=== PATIENT | male | born 1960 | race Caucasian/White ===

== ENCOUNTER 2016-06-20 09:40 | Inpatient (IN) | payer OTHER ==
[2016-06-20] MEDS ORDERED: THIAMINE HCL 100 MG in NORMAL SALINE 50 ML IV ONE (09:49)
--- OUTSIDE RECORDS SUMMARY | 2016-06-20 09:56 | XMS REPORT | Continuity of Care Document ---
:1960 Author Organization [facility] ([facility]) Address [address] [place] [address] Phone [phone] Care Team Providers Name Role Phone [facility] Primary Care Provider [phone] Source Comments This disclosure is being made pursuant to the Care Everywhere program, applicable federal and state laws, and may not contain all informaitonavailable regarding this patient.[facility] ([facility]) Active Allergies and Adverse Reactions Allergen Noted Date Severity Reactions Comments Gabapentin (Bulk) 06/25/2014 Medium OTHER Sulfadoxine Pruritus Current Medications Prescription Sig. Disp. Refills Start Date End Date Status aspirin 81 mg EC tablet Take 81 mg by mouth Active daily. pregabalin (LYRICA) 200 Take 200 mg by mouth Active mg capsule 2 times daily topiramate 100 mg Take 100 mg by mouth Active tablet 2 times daily PARoxetine 30 mg tablet Take 30 mg by mouth Active daily albuterol-ipratropium Use 2 Puffs by Active (COMBIVENT) 18-103 inhalation every 6 mcg/Actuation inhaler hours loteprednol (ALREX) 0.2 Instill 1 Drop onto Active % ophthalmic suspension both eyes daily atorvastatin 40 mg Take 1 Tab (40 mg 30 Tab 3 11/29/2014 Active tablet total) by mouth daily clopidogrel 75 mg Take 1 Tab (75 mg 30 Tab 3 11/29/2014 Active tablet total) by mouth daily famotidine 20 mg tablet Take 1 Tab (20 mg 60 Tab 3 11/29/2014 Active total) by mouth 2 times daily metoPROLol tartrate 25 Take 1/2 Tabs (12.5 30 Tab 3 11/29/2014 Active mg tablet mg total) by mouth every 12 hours Active Problems Problem Noted Date Peripheral neuropathy 06/25/2014 Claudication of calf muscles 06/25/2014 PPD positive 01/05/2013 Overview: Completed 8 months of INH and vitamin B6 and stopped due to peripheral neuropathy. Colon cancer screening 08/18/2012 Onychomycosis 08/18/2012 Carotid stenosis, bilateral 07/25/2012 Nicotine addiction 03/01/2012 Myofascial pain 03/01/2012 PAD (peripheral artery disease) 05/13/2009 Chronic airway obstruction, not elsewhere classified 05/27/2008 Chronic hepatitis C without mention of hepatic coma 01/24/2008 Overview: Genotype 1. Liver biopsy 05/15/09 DIAGNOSIS: Liver, needle biopsy: No significant inflammation or fibrosis. See comment. Comment: Jesus Ward M.D. Date reported: 05/19/09 Pathologist (Electronic Signature) COMMENT: Only a single portal triad is present on step sections through the needle biopsy. Other psoriasis 01/24/2008 Unspecified essential hypertension 01/02/2008 Unspecified viral hepatitis without mention of hepatic coma 01/02/2008 Resolved Problems Problem Noted Date Resolved Date Chest pain, unspecified 11/26/2014 11/29/2014 Leg pain, bilateral 07/25/2012 08/18/2012 Diabetes mellitus screening 03/01/2012 08/18/2012 Other physical therapy 12/05/2008 12/05/2008 Immunizations Name Dates Previously Given Next Due Influenza 01/22/2009 Influenza, PF 03/01/2012 Influenza, unspecified 01/24/2008 Novel Influenza H1N1 04/15/2009 Pneumococcal Polysaccharide, PPSV23 (Pneumovax 23) 08/18/2012 Social History Tobacco Use Types Packs/Day Years Used Date Current Every Day Smoker Cigarettes 0.5 30 Smokeless Tobacco: Never Used Tobacco Cessation:Ready to Quit: No Comments: Alcohol Use Drinks/Week oz/Week Comments No daily, 5-6 beers, last 04/19/12 Last Filed Vital Signs Vital Sign Reading Time Taken Blood Pressure 94/57 11/29/2014 7:46 AM CDT Pulse 57 11/29/2014 7:46 AM CDT Temperature 35.5 C (95.9 F) 11/29/2014 7:46 AM CDT Respiratory Rate 14 11/29/2014 11:21 AM CDT Height 1.753 m (5' 9") 11/26/2014 1:00 PM CDT Weight 98.1 kg (216 lb 4.3 oz) 11/29/2014 6:00 AM CDT Body Mass Index 31.92 11/29/2014 6:00 AM CDT Oxygen Saturation 94% 11/29/2014 7:46 AM CDT Plan of Care Health Maintenance Due Date Last Done Comments Hepatitis B Vaccine (1 of 3 - 1960 Primary Series) Tdap Vaccine 1973 MMR Vaccine 1980 Td Vaccine 1980 Colonoscopy 03/09/2012 FOBT Colon Cancer Screening 2012 Prostate Cancer Screening 2012 Sigmoidoscopy Colon Cancer 2012 Screening Influenza Vaccine: Seasonal 11/10/2015 03/01/2012, (#1) 01/22/2009, 01/24/2008 Lipid Disorder Screening 03/01/2017 03/01/2012, Additional history exists 08/12/2010, 04/15/2009 HCV Screening Completed 01/02/2008 Pneumococcal Vaccine Completed 08/18/2012 Results from Last 3 Months Not on file
--- NOTE | 2016-06-20 10:12 | ERNOTE ---
Neuro HPI ER Record Date of Service: 06/20/16 Presenting Symptoms: other - seizure Time Seen by Provider: 06/20/16 09:46 Source: EMS Exam Limitations: clinical condition Immunizations: IMMUNIZATION HX Immunizations Up to Date No History of Influenza Vaccine No Hx Pneumococcal Vaccination No Allergies/Adverse Reactions: Allergies Allergy/AdvReac Type Severity Reaction Status Date / Time Sulfa (Sulfonamide Allergy Mild Itching Verified 06/20/16 09:55 Antibiotics) [Sulfa(Sulfonamide Antibiotics)] gabapentin Allergy Verified 06/20/16 09:55 Home Medications: HOME MEDICATIONS Atenolol [Tenormin] 25 mg PO DAILY 11/26/14 [Last Taken Unknown] Diclofenac Sodium 75 mg PO DAILY 11/26/14 [Last Taken Unknown] Hydrocodone/Acetaminophen [Hydrocodon-Acetaminoph 7.5-325] 1 each PO Q8H PRN [Last Taken Unknown] Ipratropium/Albuterol Sulfate [Combivent Respimat Inhal Falcon] 1 puff IH QID [Last Taken Unknown] Mirtazapine [Mirtazapine (Remeron)] 15 mg PO HS 11/26/14 [Last Taken Unknown] Paroxetine HCl [Paxil] 30 mg PO DAILY 11/26/14 [Last Taken Unknown] Pregabalin [Lyrica] 200 mg PO DAILY 11/26/14 [Last Taken Unknown] Topiramate [Topamax] 100 mg PO DAILY 11/26/14 [Last Taken Unknown] Albuterol Sulfate [Proventil Hfa] 6.7 gm IH QID #1 inhaler 01/23/16 [Last Taken Unknown] Cephalexin [Keflex] 500 mg PO QID #40 capsule 01/23/16 [Last Taken Unknown] - History of Present Illness Narrative: EMS said bystanders thought he had a seizure. When EMS arrived, was supine, head on a pillow, disoriented. He remains disoriented in the emergency room. Actual description of seizure not available. Patient mumbling, and a useless historian at present. Does admit to drinking an unknown quantity of beer last night. Has a walking cane. Onset: cannot confirm onset Severity: moderate Context: other - unknown - Character of Deficits New weakness: Present: general (diffuse) Additional Deficits: Present: impaired speech, decrease ability to stand Baseline Cognition: Present: poor alertness Baseline Gait: Present: uses a cane/walker Associated Symptoms: Reports: altered mental status, disoriented, confused, decreased responsiveness Review of Systems - Review of Systems Constitutional: Present: no symptoms reported - unable to provide due to confusion - Patient's Past Medical History Patient History - Medical: Alcohol Abuse, Obesity Patient History - Cardiac/Respiratory: Hypertension Patient History - Cancer: No Hx of Cancer, Other Patient History - Surgical Procedures: Other Patient History - Other: None - Social History Living Situations: alone Psych History: No pertinent hx Smoking Status: Current every day smoker Have you smoked in the past 12 months: Yes Do you dip or chew tobacco: No Patient requests Smoking Cessation Consult: No Initiate information on Smoking Cessation: No Alcohol Use: heavy Drug Use: none - Immunizations Immunizations Up to Date: No Hx Pneumococcal Vaccination: No History of Influenza Vaccine: No Physical Exam - Physical Exam General Appearance: Present: wd/wn, lethargic, other - smells of alcoholic beverage Eye Exam: Normal inspection: bilateral, PERRL: bilateral, EOMI: bilateral Ears, Nose, Throat: Present: normal ENT inspection Neck: Present: normal inspection, nontender. Absent: lymphadenopathy (R), lymphadenopathy (L) Respiratory: Present: no respiratory distress, decreased breath sounds Cardiovascular/Chest: Present: regular rate, rhythm, no murmur Gastrointestinal/Abdominal: Present: normal bowel sounds, nontender, nondistended, soft, no organomegaly Back Exam: Present: normal inspection, no CVA tenderness, no vertebral tenderness Extremity Exam: Present: extremity edema Neurological Exam: Present: motor weakness, disoriented to person, disoriented to time, disoriented to place, disoriented to situation Skin Exam: Present: normal color, warm/dry, other - unkempt Y[place]enia Coma Scale - Assess Eye Opening: Spontaneous Motor: Obeys Commands Verbal: Confused - Total Coma Scale Total: 14 ED Progress - Results and Orders Patient's Lab Results:: I have reviewed the patient's lab results. - Vital Signs Patient's Vital Signs:: I have reviewed the patient's vital signs. Vital Signs: Vital Signs 06/20/16 06/20/16 06/20/16 09:40 09:41 10:02 Temperature 36.3 C L 36.3 C L Pulse Rate 131 H 135 H Respiratory 23 H 18 Rate Blood Pressure 136/92 214/125 185/154 O2 Sat by Pulse 96 96 Oximetry - EKG EKG: nonspecific ST T wave changes - sinus tach EKG read: Interp. by me - X-Ray X-Ray #1 X-Ray: chest Interpretation: Reviewed by me - non acute - CT/Ultrasound CT/Ultrasound Narrative: I reviewed the head CT report, it is non acute. - Progress/Reassessment Chief Complaint: Altered Mental Status Progress Note-Subjective: 06/20/16 11:22 Just had a generalized tonic clonic convulsion. Will give Ativan and Keppra. 06/20/16 13:02 I spoke with Hanna Hidalgo, who agreed to accept this patient as an acute med surg floor admission. Departure Clinical Impression: Stupor, Serum ammonia increased, Hyperglycemia, Seizures, Thrombocytopenia Alcohol withdrawal Qualifiers: Complication of substance-induced condition: with delirium Qualified Code(s): F10.231 - Alcohol dependence with withdrawal delirium Hypertension Qualifiers: Hypertension type: unspecified secondary hypertension Qualified Code(s): I15.9 - Secondary hypertension, unspecified; I15 - Secondary hypertension - Departure Disposition: [facility] Condition: Poor
[2016-06-20] MEDS ORDERED: LABETALOL HCL 5 MG/ML VIAL IV ONE ×4 (10:18→11:52)
[2016-06-20] MEDS: MULTIVIT INFUSN,ADULT 4,VIT K 10 ML, THIAMINE HCL 100 MG in DEXTROSE 5 % IN WATER 1,000 ML IV SCH ×3 (10:20)
[2016-06-20 10:24] LABS: Hematocrit 43.5 % (42.0-52.0); Hemoglobin 15.1 gm/dL (13.5-18.0); Mean Cell Volume 91.6 fl (78-100); Mean Corpuscular Hemoglobin 31.8 pg (27-31); Mean Corpuscular Hgb Conc 34.7 g/dl (32-36); Neutrophil # 5.9 K/mm3 (1.3-6.0); Neutrophil % 83.3 % (42-75.0); Red Blood Count 4.75 M/mm3 (4.7-6.0); Red Cell Distribution Width 13.4 % (11.5-14.0); White Blood Count 7.1 K/mm3 (4.0-10.5)
[2016-06-20 10:35] LABS: Platelet Count 19 K/mm3 (150-450)
[2016-06-20 10:45] LABS: ALT 50 U/L (19-67); AST 134 U/L (0-48); Albumin * 3.6 gm/dl (3.4-5.0); Alkaline Phosphatase * 200 U/L (50-170); Amylase * 37 U/L (25-115); BUN/Creatinine Ratio 1.8 (9.0-21.6); Bilirubin, Total 2.8 mg/dL (0.0-1.1); Blood Urea Nitrogen 2 mg/dL (6-23); Ca. Corrected For Albumin 9.2 mg/dL (8.4-10.2); Calcium * 9.2 mg/dL (7.9-10.9); Carbon Dioxide 19.1 mmol/L (24-32.6); Chloride 92 mmol/L (97-106); Glucose * 150 mg/dL (70-110); Lipase 63 U/L (73-393); Potassium 3.1 mmol/L (3.4-4.6); Salicylate Less than 2.8 mg/dL (2.8-20.0); Sodium 133 mmol/L (132-142); Troponin I Less than 0.017 ng/ml (0.00-0.10)
[2016-06-20 10:53] LABS: Urine Appearance Clear; Urine Bilirubin Negative (NEGATIVE); Urine Color Dark Yellow
[2016-06-20 10:54] LABS: Urine Blood 25 /ul (NEGATIVE); Urine Ketone 5 mg/dL (NEGATIVE); Urine Nitrite Negative (NEGATIVE); Urine Protein 30 mg/dL (NEGATIVE); Urine Specific Gravity 1.025 SP.GR. (1.005-1.030); Urine Urobilinogen Normal (NORMAL)
[2016-06-20 10:59] LABS: Urine RBC None Seen /hpf (0-5); Urine WBC 0-5 /hpf (0-5)
[2016-06-20 11:00] LABS: Urine Bacteria None Seen
[2016-06-20 11:00] LABS: Cocaine Ur Negative (NEGATIVE); Urine Barbiturate Negative (NEGATIVE); Urine Benzodiazepines Negative (NEGATIVE); Urine Opiates Negative (NEGATIVE); Urine PCP Negative (NEGATIVE); Urine THC Negative (NEGATIVE)
[2016-06-20] MEDS ORDERED: ONDANSETRON HCL/PF 2 MG/ML VIAL ONE (11:05)
[2016-06-20] MEDS ORDERED: ONDANSETRON HCL/PF 2 MG/ML VIAL IV ONE (11:07)
[2016-06-20] MEDS ORDERED: LORazepam 2 MG/ML DISP.SYRIN ONE (11:14)
[2016-06-20] MEDS ORDERED: LORazepam 2 MG/ML DISP.SYRIN IV ONE (11:21)
[2016-06-20] MEDS ORDERED: INSULIN REGULAR, HUMAN 100 UNITS/ML VIAL IV ONE (11:26)
[2016-06-20] MEDS ORDERED: POTASSIUM CHLORIDE 100 ML IV ONE (11:29)
[2016-06-20] MEDS ORDERED: INSULIN REGULAR, HUMAN 100 UNITS/ML VIAL ONE (11:42)
[2016-06-20] MEDS ORDERED: NORMAL SALINE 1,000 ML IV ONE (11:54)
--- OUTSIDE RECORDS SUMMARY | 2016-06-20 12:31 | XMS REPORT | Continuity of Care Document ---
:1960 Author Organization [facility] ([facility]) Address [address] [place] [address] Phone [phone] Care Team Providers Name Role Phone [facility] Primary Care Provider [phone] Source Comments This disclosure is being made pursuant to the Care Everywhere program, applicable federal and state laws, and may not contain all informaitonavailable regarding this patient.[facility] ([facility]) Active Allergies and Adverse Reactions Allergen [...]
[2016-06-20] MEDS ORDERED: LORazepam 2 MG/ML DISP.SYRIN IV PRN ×2 (13:12)
[2016-06-20] MEDS ORDERED: NORMAL SALINE 1,000 ML IV SCH (13:15)
--- NOTE | 2016-06-20 15:43 | HP ---
Chief Complaint - Chief Complaint Date of Service: 06/20/16 Time of Service: 15:42 Chief Complaint: seizure activity History of Present Illness: Jimbo Solis, is a 56-year-old white male, with previous medical history of COPD, hypertension, GERD, anxiety depression, coronary artery disease status post stenting, who was admitted today, , for seizure activity . Patient dozes on and off and is a poor historian. As per emergency room notes, the patient was noticed to have had a seizure activity in a store by bystanders and was brought to the emergency room . In the emergency room, the patient had another seizure activity where he was noticed to have a generalized tonic- clonic seizure. He was given IV ativan, IV Keppra, IV labetalol as his BP jumped from 136/92 to 214/115. He was admitted to telemetry for observation. His CIWA score was 19. His UDS was negative , Aspirin level was less than 2.8, acetominiphen level less than 0.2 and alcohol level less than 3. His CT scan showed no acute intracranial pathology. His platelet was 19 with elevated AST/ Alk Phis but normal ALT. His RBS was 150. His chest x-ray showed no acute cardiopulmonary findings. - Patient's Past Medical History Patient History - Medical: Alcohol Abuse, Anxiety, Depression, GERD, Obesity Patient History - Cardiac/Respiratory: Coronary Heart Disease, Hypertension Patient History - Cancer: No Hx of Cancer, Other Patient History - Surgical Procedures: Other Patient History - Other: None - Social History Living Situations: alone Psych History: No pertinent hx Smoking Status: Current every day smoker Have you smoked in the past 12 months: Yes Do you dip or chew tobacco: No Patient requests Smoking Cessation Consult: No Initiate information on Smoking Cessation: Yes Alcohol Use: heavy Drug Use: none - Immunizations Immunizations Up to Date: No Hx Pneumococcal Vaccination: No History of Influenza Vaccine: No Review Of Systems (GEN) - Review of Systems Generalized/Overall Review: Present: No Symptoms Reported EENTM: Present: No Symptoms Reported Respiratory: Present: No Symptoms Reported Cardiac: Present: No Symptoms Reported Abdominal: Present: No Symptoms Reported Genitourinary: Present: No Symptoms Reported Musculoskeletal: Present: No Symptoms Reported Neurological: Present: No Symptoms Reported Skin: Present: No Symptoms Reported Endocrine: Present: No Symptoms Reported Misc: All systems neg except as marked - ROS unobtainable due to drowsiness- postictal Immunizations: IMMUNIZATION HX Immunizations Up to Date No History of Influenza Vaccine No Hx Pneumococcal Vaccination No Allergies/Adverse Reactions: Allergies Allergy/AdvReac Type Severity Reaction Status Date / Time Sulfa (Sulfonamide Allergy Mild Itching Verified 06/20/16 09:55 Antibiotics) [Sulfa(Sulfonamide Antibiotics)] gabapentin Allergy Verified 06/20/16 09:55 Home Medications: HOME MEDICATIONS Atenolol [Tenormin] 25 mg PO DAILY 11/26/14 [Last Taken Unknown] Diclofenac Sodium 100 mg PO BID 11/26/14 [Last Taken Unknown] Hydrocodone/Acetaminophen [Hydrocodon-Acetaminoph 7.5-325] 1 each PO TID PRN [Last Taken Unknown] Mirtazapine [Mirtazapine (Remeron)] 45 mg PO HS 11/26/14 [Last Taken Unknown] Paroxetine HCl [Paxil] 20 mg PO DAILY 11/26/14 [Last Taken Unknown] Pregabalin [Lyrica] 200 mg PO BID 11/26/14 [Last Taken Unknown] Topiramate [Topamax] 50 mg PO BID 11/26/14 [Last Taken Unknown] Albuterol Sulfate [Proair Respiclick] 180 mcg IH Q6H 06/20/16 [Last Taken Unknown] Budesonide/Formoterol Fumarate [Symbicort 160-4.5 Mcg Inhaler] 20.4 gm IH BID [Last Taken Unknown] Exam - Exam Vital Signs: Vital Signs - Last Taken Temp 36.7 C 06/20/16 13:25 Pulse 113 H 06/20/16 13:25 Resp 16 06/20/16 13:25 BP 189/107 06/20/16 13:25 Pulse Ox 99 06/20/16 13:25 Constitutional: Present: Alert - AAO x 2 ENT Exam: Present: hearing grossly normal Eye Exam: bilateral eye: normal inspection, PERRL, EOMI Neck: Present: supple Breasts: Present: Exam deferred Respiratory: Present: decreased breath sounds, No rales, No wheezing Cardiovascular/Chest: Present: regular rate, rhythm, no JVD, no murmur Abdomen: Present: Normal bowel sounds, soft, nontender, nondistended Extremity: Present: no pedal edema, no calf tenderness Neurologic: Present: other - drowsy/sleepy, no gross motor/sensory deficit Diagnostic Studies: Abnormal Lab Results 06/20/16 Range/Units 13:39 Lactic Acid, Venous 4.7 H* (0.4-2.0) mmol/L Laboratory Results WBC 7.1 K/mm3 (4.0-10.5) 06/20/16 10:00 RBC 4.75 M/mm3 (4.7-6.0) 06/20/16 10:00 Hgb 15.1 gm/dL (13.5-18.0) 06/20/16 10:00 Hct 43.5 % (42.0-52.0) 06/20/16 10:00 MCV 91.6 fl (78-100) 06/20/16 10:00 MCH 31.8 pg (27-31) H 06/20/16 10:00 MCHC 34.7 g/dl (32-36) 06/20/16 10:00 RDW 13.4 % (11.5-14.0) 06/20/16 10:00 Plt Count 19 K/mm3 (150-450) L* D 06/20/16 10:00 Immature Gran % (Auto) 0.40 % (0.001-0.429) 06/20/16 10:00 Immature Gran # (Auto) 0.03 K/mm3 (0.000-0.0310) 06/20/16 10:00 Neutrophils % 83.3 % (42-75.0) H 06/20/16 10:00 Lymphocytes % 6.5 % (20-51) L 06/20/16 10:00 Monocytes % 9.5 % (0.0-9) H 06/20/16 10:00 Eosinophils % 0.0 % (0.0-3.0) 06/20/16 10:00 Basophils % 0.3 % (0.0-1.0) 06/20/16 10:00 Nucleated RBC % 0.0 k/mm3 (0-1) 06/20/16 10:00 Neutrophils # 5.9 K/mm3 (1.3-6.0) 06/20/16 10:00 Lymphocytes # 0.5 k/mm3 (1.5-3.5) L 06/20/16 10:00 Monocytes # 0.7 k/mm3 (0.0-1.0) 06/20/16 10:00 Eosinophils # 0.0 k/mm3 (0.0-0.7) 06/20/16 10:00 Absolute Basophils 0.0 k/mm3 (0.0-0.1) 06/20/16 10:00 Sodium 133 mmol/L (132-142) 06/20/16 10:00 Plasma Sodium 134 mmol/L (130-142) 06/20/16 10:00 Potassium 3.1 mmol/L (3.4-4.6) L D 06/20/16 10:00 Chloride 92 mmol/L (97-106) L 06/20/16 10:00 Carbon Dioxide 19.1 mmol/L (24-32.6) L 06/20/16 10:00 Anion Gap 25.0 mmol/L (6.8-13.8) H 06/20/16 10:00 BUN 2 mg/dL (6-23) L D 06/20/16 10:00 Creatinine 1.13 mg/dL (0.4-1.4) 06/20/16 10:00 Est GFR (Non-Af Amer) 72 mL/min (60-130) D 06/20/16 10:00 BUN/Creatinine Ratio 1.8 (9.0-21.6) L 06/20/16 10:00 Random Glucose 150 mg/dL (70-110) H 06/20/16 10:00 Lactic Acid, Venous 4.7 mmol/L (0.4-2.0) H* 06/20/16 13:39 Calcium 9.2 mg/dL (7.9-10.9) 06/20/16 10:00 Calcium Adj for Albumin 9.2 mg/dL (8.4-10.2) 06/20/16 10:00 Magnesium 1.9 mg/dL (1.2-2.8) 06/20/16 10:00 Total Bilirubin 2.8 mg/dL (0.0-1.1) H 06/20/16 10:00 AST 134 U/L (0-48) H 06/20/16 10:00 ALT 50 U/L (19-67) 06/20/16 10:00 Alkaline Phosphatase 200 U/L (50-170) H 06/20/16 10:00 Ammonia 59.0 mcmol/L (11-35) H 06/20/16 10:00 Troponin I Less than 0.017 ng/ml (0.00-0.10) 06/20/16 10:00 Total Protein 8.0 gm/dL (6.2-8.2) 06/20/16 10:00 Albumin 3.6 gm/dl (3.4-5.0) 06/20/16 10:00 Amylase 37 U/L (25-115) 06/20/16 10:00 Lipase 63 U/L (73-393) L 06/20/16 10:00 Procalcitonin Less than 0.05 ng/mL (0.05-0.50) L 06/20/16 10:00 Urine Color Dark yellow 06/20/16 10:45 Urine Appearance Clear 06/20/16 10:45 Urine pH 6.0 pH (5.0-7.0) 06/20/16 10:45 Ur Specific [place] 1.025 SP.GR. (1.005-1.030) 06/20/16 10:45 Urine Protein 30 mg/dL (NEGATIVE) H 06/20/16 10:45 Urine Glucose (UA) 100 mg/dL (NEGATIVE) H 06/20/16 10:45 Urine Ketones 5 mg/dL (NEGATIVE) 06/20/16 10:45 Urine Blood 25 /ul (NEGATIVE) H 06/20/16 10:45 Urine Nitrate Negative (NEGATIVE) 06/20/16 10:45 Urine Bilirubin Negative mg/dl (NEGATIVE) 06/20/16 10:45 Prot Sulfosalicylic Acd 1+ mg/dL (0) 06/20/16 10:45 Urine Urobilinogen Normal EU/dl (NORMAL) 06/20/16 10:45 Ur Leukocyte Esterase Negative /ul (NEGATIVE) 06/20/16 10:45 Urine RBC None seen /hpf (0-5) 06/20/16 10:45 Urine WBC 0-5 /hpf (0-5) 06/20/16 10:45 Ur Epithelial Cells 0-5 /hpf (0-5) 06/20/16 10:45 Urine Bacteria None seen (NONE) 06/20/16 10:45 Urine Culture Comments No culture indicated 06/20/16 10:45 Salicylates Less than 2.8 mg/dL (2.8-20.0) L 06/20/16 10:00 Urine Opiates Screen Negative (NEGATIVE) 06/20/16 09:49 Acetaminophen Less than 0.2 mcg/mL (10.0-30.0) L 06/20/16 10:00 Barbiturate Screen Negative (NEGATIVE) 06/20/16 09:49 Ur Phencyclidine Scrn Negative (NEGATIVE) 06/20/16 09:49 Urine Amphetamine Negative (NEGATIVE) 06/20/16 09:49 U Benzodiazepines Scrn Negative (NEGATIVE) 06/20/16 09:49 Urine Cocaine Screen Negative (NEGATIVE) 06/20/16 09:49 Urine Marijuana (THC) Negative (NEGATIVE) 06/20/16 09:49 Ethyl Alcohol Less than 3.0 mg/dL (0.0-10.0) 06/20/16 10:00 Assessment/Plan - Assessment/Plan (1) Seizures Assessment: generalized tonic/clonic likely due to alcohol withdrawal . will continue with alcohol withdrawal protocol . will need to transfer him to the unit for closer monitoring when we get an ICu nurse. do neurochecks q 1 hour x 2 hours then q 2 hours x 4 hours, then q 6 hours. if patient has another seizure episode , will transfer to [facility]. Problem: Acute (2) Alcohol withdrawal Assessment: will start banana bag. will follow withdrawal protocol. Problem: Acute Qualifiers: Complication of substance-induced condition: with delirium Qualified Code(s ): F10.231 - Alcohol dependence with withdrawal delirium (3) Hypertension Assessment: will change atenolol to propanolol. Problem: Acute Qualifiers: Hypertension type: unspecified secondary hypertension Qualified Code(s): I15.9 - Secondary hypertension, unspecified; I15 - Secondary hypertension (4) Serum ammonia increased Assessment: will give lactulose. Problem: Acute (5) Thrombocytopenia Assessment: will repeat platelet. like due to HSM from chronic alcohol dependence with live cirrhosis. repeat Plt was 17. no signs of bleeding. Problem: Acute (6) Elevated liver enzymes Assessment: due to chronic alcohol dependence. Problem: Chronic (7) Elevated lactic acid level Assessment: due to increased metabolic state from seizure activity. Problem: Acute
[2016-06-20] MEDS ORDERED: MULTIVIT INFUSN,ADULT 4,VIT K 10 ML, THIAMINE HCL 100 MG in DEXTROSE 5 % IN WATER 1,000 ML IV SCH ×3 (16:15)
[2016-06-20 17:33] LABS: Hemoglobin 14.8 gm/dL (13.5-18.0); Mean Cell Volume 90.1 fl (78-100); Mean Corpuscular Hemoglobin 31.8 pg (27-31); Mean Corpuscular Hgb Conc 35.2 g/dl (32-36); Mean Platelet Volume 11.4 fl (6.0-9.5); Neutrophil # 4.1 K/mm3 (1.3-6.0); Red Blood Count 4.66 M/mm3 (4.7-6.0); Red Cell Distribution Width 13.4 % (11.5-14.0); White Blood Count 5.5 K/mm3 (4.0-10.5)
[2016-06-20 17:38] LABS: Platelet Count 17 K/mm3 (150-450)
[2016-06-20] MEDS ORDERED: POTASSIUM CHLORIDE 10 MEQ TABLET.SA PO ONE (17:57)
[2016-06-20] MEDS: DEXTROSE 5%-0.5 NORMAL SALINE 1,000 ML IV PRN (18:58)
[2016-06-20] MEDS: LACTULOSE 10 G/15 ML BTL RC SCH ×2 (19:03→19:05)
[2016-06-20] MEDS: LORazepam 2 MG/ML DISP.SYRIN IV PRN (19:26)
[2016-06-20] MEDS: PROPRANOLOL HCL 10 MG TABLET PO SCH (19:28)
[2016-06-20] MEDS ORDERED: POTASSIUM CHLORIDE 10 MEQ TABLET.SA ONE (19:31)
[2016-06-20] MEDS ORDERED: FLUTICASONE/SALMETEROL 14 PUFF DISK.W.DEV IH SCH (21:00)
[2016-06-20] MEDS: ALBUTEROL SULFATE 2.5 MG/0.5 ML VIAL.NEB IH SCH (21:43)
[2016-06-21] MEDS: ALBUTEROL SULFATE 2.5 MG/0.5 ML VIAL.NEB IH SCH ×4 (00:46→18:10)
[2016-06-21] MEDS: LACTULOSE 10 G/15 ML BTL RC SCH ×2 (02:27→09:25)
[2016-06-21] MEDS: LORazepam 2 MG/ML DISP.SYRIN IV PRN ×4 (02:58→15:39)
[2016-06-21] MEDS: DEXTROSE 5%-0.5 NORMAL SALINE 1,000 ML IV PRN ×2 (05:17→15:38)
[2016-06-21] MEDS: PROPRANOLOL HCL 10 MG TABLET PO SCH ×2 (05:31→18:04)
[2016-06-21 06:48] LABS: Hematocrit 45.7 % (42.0-52.0); Hemoglobin 15.5 gm/dL (13.5-18.0); Mean Cell Volume 92.7 fl (78-100); Mean Corpuscular Hemoglobin 31.4 pg (27-31); Mean Corpuscular Hgb Conc 33.9 g/dl (32-36); Mean Platelet Volume 10.4 fl (6.0-9.5); Neutrophil # 2.4 K/mm3 (1.3-6.0); Neutrophil % 61.7 % (42-75.0); Red Blood Count 4.93 M/mm3 (4.7-6.0); Red Cell Distribution Width 13.4 % (11.5-14.0); White Blood Count 3.9 K/mm3 (4.0-10.5)
[2016-06-21 06:53] LABS: Platelet Count 20 K/mm3 (150-450)
[2016-06-21 07:05] LABS: INR 1.15 INR (0.90-1.10); Partial Thrombolplastin Time 31.3 Seconds (24-32)
[2016-06-21 07:13] LABS: Anion Gap 11.8 mmol/L (6.8-13.8); BUN/Creatinine Ratio 3.7 (9.0-21.6); Bilirubin, Total 2.6 mg/dL (0.0-1.1); Ca. Corrected For Albumin 9.1 mg/dL (8.4-10.2); Calcium * 8.6 mg/dL (7.9-10.9); Carbon Dioxide 29.3 mmol/L (24-32.6); Potassium 3.1 mmol/L (3.4-4.6); Total Protein 7.2 gm/dL (6.2-8.2)
--- NOTE | 2016-06-21 08:10 | PN ---
Subjective - Date and Time Seen Date: 06/21/16 Time: 08:01 Subjective Narrative: Patient more awake. DEVENO x3. Says he drinks too much but had his last drink 2 days before his admission. Objective - Review of Systems Generalized/Overall Review: Reports: Weakness. Denies: Chills, Fever EENTM: Reports: No Symptoms Reported Respiratory: Denies: Cough, Shortness of Breath Cardiac: Denies: Chest Pain, Palpitations Abdominal: Denies: Nausea, Vomiting Genitourinary Symptoms: Denies: Urgency, Frequency Musculoskeletal Complaints: Denies: Joint Pain - Vitals Vitals: Last Vital Signs Temp 37 C 06/21/16 07:20 Pulse 84 06/21/16 07:20 Resp 18 06/21/16 07:20 BP 162/98 06/21/16 07:20 Pulse Ox 100 06/21/16 07:20 - Abnormal Lab Findings Abnormal Lab Findings: Abnormal Lab Results 06/20/16 06/20/16 06/21/16 Range/Units 13:39 17:28 06:36 WBC 3.9 L D (4.0-10.5) K/mm3 RBC 4.66 L (4.7-6.0) M/mm3 MCH 31.8 H 31.4 H (27-31) pg Plt Count 17 L* 20 L* (150-450) K/mm3 MPV 11.4 H 10.4 H (6.0-9.5) fl Immature Gran % (Auto) 0.50 H (0.001-0.429) % Lymphocytes % 12.0 L (20-51) % Monocytes % 12.0 H 14.7 H (0.0-9) % Lymphocytes # 0.7 L 0.9 L (1.5-3.5) k/mm3 PT (9.4-11.4) Seconds INR (Anticoag Therapy) (0.90-1.10) INR Potassium (3.4-4.6) mmol/L BUN (6-23) mg/dL BUN/Creatinine Ratio (9.0-21.6) Lactic Acid, Venous 4.7 H* (0.4-2.0) mmol/L Total Bilirubin (0.0-1.1) mg/dL AST (0-48) U/L Albumin (3.4-5.0) gm/dl 06/21/16 06/21/16 Range/Units 06:36 06:36 WBC (4.0-10.5) K/mm3 RBC (4.7-6.0) M/mm3 MCH (27-31) pg Plt Count (150-450) K/mm3 MPV (6.0-9.5) fl Immature Gran % (Auto) (0.001-0.429) % Lymphocytes % (20-51) % Monocytes % (0.0-9) % Lymphocytes # (1.5-3.5) k/mm3 PT 12.0 H (9.4-11.4) Seconds INR (Anticoag Therapy) 1.15 H (0.90-1.10) INR Potassium 3.1 L (3.4-4.6) mmol/L BUN 3 L (6-23) mg/dL BUN/Creatinine Ratio 3.7 L (9.0-21.6) Lactic Acid, Venous (0.4-2.0) mmol/L Total Bilirubin 2.6 H (0.0-1.1) mg/dL AST 79 H (0-48) U/L Albumin 3.0 L (3.4-5.0) gm/dl - Exam Constitutional: Present: Alert, Oriented x3, Cooperative ENT Exam: Present: hearing grossly normal Neck: Present: supple Breasts: Present: Exam deferred Respiratory: Present: decreased breath sounds, No rales, No wheezing Cardiovascular/Chest: Present: regular rate, rhythm, no JVD, no murmur Abdomen: Present: Normal bowel sounds, soft, nontender, nondistended Extremity: Present: no pedal edema, no calf tenderness, other - positive ecchymoses on right antecubital area from blood draw Cauti Physician Documentation - Urinary Catheter Management Urethral ([place]) Date of Insertion: 06/20/16 Time of Insertion: 15:00 Assessment/Plan - Problems/Diagnosis (1) Seizures Problem: Acute Narrative: has not had one since admission. on IV keppra and IV ativan. (2) Alcohol withdrawal Problem: Acute Qualifiers: Complication of substance-induced condition: with delirium Qualified Code(s ): F10.231 - Alcohol dependence with withdrawal delirium (3) Hypertension Problem: Acute Qualifiers: Hypertension type: unspecified secondary hypertension Qualified Code(s): I15.9 - Secondary hypertension, unspecified; I15 - Secondary hypertension (4) Serum ammonia increased Problem: Acute Narrative: will repeat level. on lactulose (5) Thrombocytopenia Problem: Acute Narrative: no active bleeding. platelet 20- improved (6) Elevated liver enzymes Problem: Chronic (7) Elevated lactic acid level Problem: Acute Narrative: will repeat level.
[2016-06-21] MEDS: FLUTICASONE/SALMETEROL 14 PUFF DISK.W.DEV IH SCH ×2 (08:25→21:24)
[2016-06-21] MEDS ORDERED: THIAMINE HCL 100 MG in NORMAL SALINE 50 ML IV SCH (09:00)
[2016-06-21] MEDS ORDERED: THIAMINE HCL 100 MG/ML VIAL IV SCH (09:00)
[2016-06-21] MEDS ORDERED: LACTULOSE 10 G/15 ML BTL PO SCH (09:15)
[2016-06-21] MEDS: POTASSIUM CHLORIDE 20 MEQ TABLET.SA PO SCH ×3 (09:47→18:04)
[2016-06-21] MEDS: MULTIVIT INFUSN,ADULT 4,VIT K 10 ML, THIAMINE HCL 100 MG in DEXTROSE 5 % IN WATER 1,000 ML IV SCH ×9 (12:33→18:01)
[2016-06-22] MEDS: ALBUTEROL SULFATE 2.5 MG/0.5 ML VIAL.NEB IH SCH ×2 (00:24→07:55)
[2016-06-22] MEDS: LORazepam 2 MG/ML DISP.SYRIN IV PRN ×5 (00:53→19:37)
[2016-06-22] MEDS: DEXTROSE 5%-0.5 NORMAL SALINE 1,000 ML IV PRN ×2 (01:54→12:34)
[2016-06-22] MEDS: PROPRANOLOL HCL 10 MG TABLET PO SCH (05:39)
[2016-06-22] MEDS: FLUTICASONE/SALMETEROL 14 PUFF DISK.W.DEV IH SCH (07:33)
--- NOTE | 2016-06-22 08:43 | PN ---
Subjective - Date and Time Seen Date: 06/22/16 Time: 08:39 Subjective Narrative: Patient is AAO x 2. Carries conversation but goes off tangent intermittently. Says he has problems ivett his eyes. Sometimes objects seem to be close for him to grasp but are far. Objective - Review of Systems Generalized/Overall Review: Reports: Weakness. Denies: Chills, Fever EENTM: Reports: Blurred Vision Respiratory: Denies: Cough, Shortness of Breath, Orthopnea Cardiac: Denies: Chest Pain, Edema Abdominal: Denies: Nausea, Vomiting Genitourinary Symptoms: Denies: Urgency, Frequency Neurological: Reports: Weakness - Vitals Vitals: Last Vital Signs Temp 37 C 06/22/16 07:09 Pulse 93 06/22/16 08:05 Resp 19 06/22/16 08:05 BP 188/92 06/22/16 07:09 Pulse Ox 100 06/22/16 07:55 - Exam Constitutional: Present: Alert - AAO x 2, Looks Older than stated age ENT Exam: Present: hearing grossly normal Neck: Present: supple Breasts: Present: Exam deferred Respiratory: Present: decreased breath sounds, No rales, No wheezing Cardiovascular/Chest: Present: regular rate, rhythm, no JVD, no murmur Abdomen: Present: Normal bowel sounds, soft, nontender, nondistended Extremity: Present: no pedal edema, no calf tenderness Cauti Physician Documentation - Urinary Catheter Management Urethral (De La Vega) Date of Insertion: 06/20/16 Time of Insertion: 15:00 Date of Removal: 06/21/16 Time of Removal: 08:56 Assessment/Plan - Problems/Diagnosis (1) Seizures Problem: Acute Narrative: no seizure since admission. (2) Alcohol withdrawal Problem: Acute Qualifiers: Complication of substance-induced condition: with delirium Qualified Code(s ): F10.231 - Alcohol dependence with withdrawal delirium Narrative: on alcohol withdrawal protocol. (3) Hypertension Problem: Acute Qualifiers: Hypertension type: unspecified secondary hypertension Qualified Code(s): I15.9 - Secondary hypertension, unspecified; I15 - Secondary hypertension Narrative: propanolok increased. started for HTN and possible Portal HTN. (4) Serum ammonia increased Problem: Resolved (5) Thrombocytopenia Problem: Acute (6) Elevated liver enzymes Problem: Chronic (7) Elevated lactic acid level Problem: Resolved (8) Confusion after a seizure Problem: Acute Narrative: r/o Wernicke-korsakof Syndrome. will get neurology and Psych consult ( also for alcohol dependence). (9) Weakness Problem: Acute Narrative: will refer to PT . Observe for ataxia too.
[2016-06-22] MEDS: LACTULOSE 10 G/15 ML BTL PO SCH ×3 (10:04→17:08)
[2016-06-22] MEDS: PROPRANOLOL HCL 20 MG TABLET PO SCH ×2 (10:05→21:17)
[2016-06-22] MEDS: levETIRAcetam 500 MG TABLET PO SCH (10:05)
[2016-06-22] MEDS: THIAMINE HCL 250 MG in NORMAL SALINE 50 ML IV SCH ×3 (10:07→17:10)
[2016-06-22] MEDS ORDERED: ALBUTEROL SULFATE 2.5 MG/3 ML VIAL.NEB IH SCH (13:00)
[2016-06-22] MEDS ORDERED: ALBUTEROL SULFATE 2.5 MG/3 ML VIAL.NEB IH PRN (14:12)
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
[2016-06-22] MEDS: MULTIVIT INFUSN,ADULT 4,VIT K 10 ML, THIAMINE HCL 100 MG in DEXTROSE 5 % IN WATER 1,000 ML IV SCH ×3 (19:46)
[2016-06-23] MEDS: LISINOPRIL 5 MG TABLET PO SCH ×3 (03:18→21:18)
[2016-06-23] MEDS: levETIRAcetam 500 MG TABLET PO SCH ×3 (03:18→21:18)
[2016-06-23] MEDS: LORazepam 2 MG/ML DISP.SYRIN IV PRN (03:21)
[2016-06-23] MEDS ORDERED: LORazepam 2 MG/ML DISP.SYRIN IM/IV PRN (03:27)
[2016-06-23] MEDS: FLUTICASONE/SALMETEROL 14 PUFF DISK.W.DEV IH SCH ×3 (06:38→19:07)
[2016-06-23] MEDS: PROPRANOLOL HCL 20 MG TABLET PO SCH ×2 (08:38→21:17)
[2016-06-23] MEDS: LACTULOSE 10 G/15 ML BTL PO SCH ×3 (08:39→18:43)
[2016-06-23] MEDS: LORazepam 2 MG/ML DISP.SYRIN IM/IV PRN ×2 (09:16→16:28)
--- NOTE | 2016-06-23 12:18 | PN ---
Subjective - Date and Time Seen Date: 06/23/16 Time: 12:09 Subjective Narrative: Patient is AAO x 2. Sitting on recliner. Answers appropriately at times and goes rambling with words at times. Objective - Review of Systems Generalized/Overall Review: Denies: Chills, Fever EENTM: Reports: Other - vision problems Respiratory: Denies: Cough, Shortness of Breath Cardiac: Denies: Chest Pain, Edema, Palpitations Abdominal: Denies: Nausea, Vomiting Genitourinary Symptoms: Denies: Urgency, Frequency Musculoskeletal Complaints: Denies: Joint Pain Neurological: Reports: Other - no seizures - Vitals Vitals: Last Vital Signs Temp 36.8 C 06/23/16 08:06 Pulse 88 06/23/16 08:38 Resp 20 06/23/16 08:06 BP 158/78 06/23/16 08:38 Pulse Ox 98 06/23/16 08:06 - Exam Constitutional: Present: Alert - AAO x2, Other - confused at imes, answers correctly at times ENT Exam: Present: hearing grossly normal Neck: Present: supple Breasts: Present: Exam deferred Respiratory: Present: decreased breath sounds, No rales, No wheezing Cardiovascular/Chest: Present: regular rate, rhythm, no JVD, no murmur Abdomen: Present: Normal bowel sounds, soft, nontender, nondistended Extremity: Present: no pedal edema, no calf tenderness Neurologic: Present: other - AAO x 2, no gross motor/sensory deficit Cauti Physician Documentation - Urinary Catheter Management Urethral (De La Vega) Date of Insertion: 06/20/16 Time of Insertion: 15:00 Date of Removal: 06/21/16 Time of Removal: 08:56 Assessment/Plan - Problems/Diagnosis (1) Seizures Problem: Acute Narrative: will do EEG when more stable and less confuse. If EEG is normal , will d/c Zoe. Discussed case with Dr. Valentin- do folate, B12 levels , agree with high dose Thiamine. (2) Alcohol withdrawal Problem: Acute Qualifiers: Complication of substance-induced condition: with delirium Qualified Code(s ): F10.231 - Alcohol dependence with withdrawal delirium Narrative: on withdrawal protocol. (3) Hypertension Problem: Acute Qualifiers: Hypertension type: unspecified secondary hypertension Qualified Code(s): I15.9 - Secondary hypertension, unspecified; I15 - Secondary hypertension Narrative: improved with addition of MASOUD I (4) Serum ammonia increased Problem: Resolved (5) Thrombocytopenia Problem: Acute Narrative: will moniotr. no active bleeding. (6) Elevated liver enzymes Problem: Chronic (7) Elevated lactic acid level Problem: Resolved (8) Confusion after a seizure Problem: Acute Narrative: r/o Wernicke-korsakoff. (9) Weakness Problem: Acute Narrative: PT evsl. (10) Latent tuberculosis Problem: Chronic Narrative: history of Latent TB ( positive PPD 20 mm) treated with 300 mg of INH. complied with 1st round of therapy. CXR sent to Dr. Jag Summers in [facility] - state expert in TB- no active TB . August D/C isolation.
[2016-06-23] MEDS: THIAMINE HCL 250 MG in NORMAL SALINE 50 ML IV SCH ×3 (13:51→18:25)
[2016-06-23] MEDS: MULTIVIT INFUSN,ADULT 4,VIT K 10 ML, THIAMINE HCL 100 MG in DEXTROSE 5 % IN WATER 1,000 ML IV SCH ×3 (18:25)
[2016-06-24 06:05] LABS: Hematocrit 40.4 % (42.0-52.0); Hemoglobin 13.8 gm/dL (13.5-18.0); Mean Cell Volume 93.1 fl (78-100); Mean Corpuscular Hemoglobin 31.8 pg (27-31); Mean Corpuscular Hgb Conc 34.2 g/dl (32-36); Mean Platelet Volume 10.6 fl (6.0-9.5); Neutrophil # 2.7 K/mm3 (1.3-6.0); Neutrophil % 57.8 % (42-75.0); Platelet Count 44 K/mm3 (150-450); Red Blood Count 4.34 M/mm3 (4.7-6.0); Red Cell Distribution Width 13.6 % (11.5-14.0); White Blood Count 4.7 K/mm3 (4.0-10.5)
[2016-06-24 06:55] LABS: Albumin * 2.9 gm/dl (3.4-5.0); Anion Gap 12.3 mmol/L (6.8-13.8); BUN/Creatinine Ratio 15.4 (9.0-21.6); Bilirubin, Total 2.5 mg/dL (0.0-1.1); Ca. Corrected For Albumin 9.9 mg/dL (8.4-10.2); Calcium * 9.3 mg/dL (7.9-10.9); Carbon Dioxide 27.1 mmol/L (24-32.6); Folate 13.1 ng/mL (8.6-58.9); Potassium 3.4 mmol/L (3.4-4.6)
[2016-06-24] MEDS: FLUTICASONE/SALMETEROL 14 PUFF DISK.W.DEV IH SCH ×2 (07:42→18:41)
--- NOTE | 2016-06-24 08:41 | PN ---
Subjective - Date and Time Seen Date: 06/24/16 Time: 08:36 Subjective Narrative: Sitting on recliner. AAO x 3. Agrees to have EEG as long as "nurses do not yank him around". complains of keft hip pain. Objective - Review of Systems Generalized/Overall Review: Reports: Weakness. Denies: Chills, Fever EENTM: Reports: No Symptoms Reported Respiratory: Denies: Cough, Shortness of Breath Cardiac: Denies: Chest Pain, Edema, Palpitations Abdominal: Denies: Nausea, Vomiting Genitourinary Symptoms: Denies: Urgency, Frequency Musculoskeletal Complaints: Reports: Joint Pain - Vitals Vitals: Last Vital Signs Temp 36.8 C 06/24/16 08:33 Pulse 88 06/24/16 08:33 Resp 20 06/24/16 08:33 BP 156/76 06/24/16 08:33 Pulse Ox 98 06/24/16 08:33 - Abnormal Lab Findings Abnormal Lab Findings: Abnormal Lab Results 06/24/16 06/24/16 Range/Units 05:54 05:54 RBC 4.34 L (4.7-6.0) M/mm3 Hct 40.4 L (42.0-52.0) % MCH 31.8 H (27-31) pg Plt Count 44 L (150-450) K/mm3 MPV 10.6 H (6.0-9.5) fl Monocytes % 18.7 H (0.0-9) % Lymphocytes # 1.0 L (1.5-3.5) k/mm3 Random Glucose 132 H (70-110) mg/dL Total Bilirubin 2.5 H (0.0-1.1) mg/dL AST 74 H (0-48) U/L Albumin 2.9 L (3.4-5.0) gm/dl - Exam Constitutional: Present: Alert, Oriented x3, Cooperative ENT Exam: Present: hearing grossly normal Neck: Present: supple Breasts: Present: Exam deferred Respiratory: Present: chest non-tender, No rales, No wheezing Cardiovascular/Chest: Present: regular rate, rhythm, no JVD, no murmur Abdomen: Present: Normal bowel sounds, soft, nontender, nondistended Extremity: Present: no pedal edema, no calf tenderness Cauti Physician Documentation - Urinary Catheter Management Urethral (De La Vega) Date of Insertion: 06/20/16 Time of Insertion: 15:00 Date of Removal: 06/21/16 Time of Removal: 08:56 Assessment/Plan - Problems/Diagnosis (1) Seizures Problem: Acute Narrative: for EEG today. will get neuro consult in am . possible discharge in am. (2) Alcohol withdrawal Problem: Acute Qualifiers: Complication of substance-induced condition: with delirium Qualified Code(s ): F10.231 - Alcohol dependence with withdrawal delirium (3) Hypertension Problem: Acute Qualifiers: Hypertension type: unspecified secondary hypertension Qualified Code(s): I15.9 - Secondary hypertension, unspecified; I15 - Secondary hypertension (4) Serum ammonia increased Problem: Resolved (5) Thrombocytopenia Problem: Acute (6) Elevated liver enzymes Problem: Chronic (7) Elevated lactic acid level Problem: Resolved (8) Confusion after a seizure Problem: Acute Narrative: significanlty improved . r/o wernicke-korsakoof syndrome. (9) Weakness Problem: Acute (10) Latent tuberculosis Problem: Chronic (11) Hip pain, left Problem: Acute Narrative: will get xray.
[2016-06-24] MEDS: LACTULOSE 10 G/15 ML BTL PO SCH ×3 (09:18→17:45)
[2016-06-24] MEDS: PROPRANOLOL HCL 20 MG TABLET PO SCH ×2 (09:20→20:34)
[2016-06-24] MEDS: LISINOPRIL 5 MG TABLET PO SCH ×2 (09:26→20:35)
[2016-06-24] MEDS: levETIRAcetam 500 MG TABLET PO SCH ×2 (09:27→20:34)
[2016-06-24] MEDS: THIAMINE HCL 250 MG in NORMAL SALINE 50 ML IV SCH ×3 (09:27→17:33)
[2016-06-24] MEDS: ACETAMINOPHEN 500 MG TABLET PO PRN (16:36)
[2016-06-24] MEDS: MULTIVIT INFUSN,ADULT 4,VIT K 10 ML, THIAMINE HCL 100 MG in DEXTROSE 5 % IN WATER 1,000 ML IV SCH ×3 (17:33)
[2016-06-24] MEDS: THIAMINE HCL 100 MG TABLET PO SCH (17:46)
[2016-06-25] MEDS: FLUTICASONE/SALMETEROL 14 PUFF DISK.W.DEV IH SCH ×2 (06:58→18:28)
[2016-06-25] MEDS: LACTULOSE 10 G/15 ML BTL PO SCH ×3 (08:10→16:23)
[2016-06-25] MEDS: PROPRANOLOL HCL 20 MG TABLET PO SCH ×2 (08:10→20:01)
[2016-06-25] MEDS: THIAMINE HCL 100 MG TABLET PO SCH ×3 (08:11→16:23)
[2016-06-25] MEDS: LISINOPRIL 5 MG TABLET PO SCH ×2 (08:11→20:02)
[2016-06-25] MEDS: levETIRAcetam 500 MG TABLET PO SCH ×2 (08:11→20:02)
[2016-06-25] MEDS: ACETAMINOPHEN 500 MG TABLET PO PRN ×2 (08:15→18:28)
--- NOTE | 2016-06-25 08:28 | PN ---
Progess Note - Interim Narrative: 06/25/16 08:25 Patient AAO x 3. Had EEG yesterday. If neurology says he does need his keppra will d/c it. For discharge today if MRI of brain is normal as he now says that he has been having GATES's even before his seizure started.
--- NOTE | 2016-06-25 13:01 | DS ---
(1) Seizures Diagnosis(s): discussed with Dr. Hayes- recommends to keep patient on Keppra x 6 months even if EEG is normal. He will see him next week in the office. Problem: Resolved (2) Alcohol withdrawal Problem: Acute Qualifiers: Complication of substance-induced condition: with delirium Qualified Code(s ): F10.231 - Alcohol dependence with withdrawal delirium (3) Hypertension Problem: Acute Qualifiers: Hypertension type: unspecified secondary hypertension Qualified Code(s): I15.9 - Secondary hypertension, unspecified; I15 - Secondary hypertension (4) Serum ammonia increased Problem: Resolved (5) Thrombocytopenia Diagnosis(s): improved. no active bleeding Problem: Acute (6) Elevated liver enzymes Problem: Chronic (7) Elevated lactic acid level Problem: Resolved (8) Confusion after a seizure Problem: Resolved (9) Weakness Problem: Resolved (10) Latent tuberculosis Problem: Chronic Description of Stay: Jimbo Solis, is a 56-year-old white male, with previous medical history of COPD, hypertension, GERD, anxiety depression, coronary artery disease status post stenting, who was admitted today, , for seizure activity . Patient dozed on and off and was a poor historian. As per emergency room notes , the patient was noticed to have had a seizure activity in a store by bystanders and was brought to the emergency room . In the emergency room, the patient had another seizure activity where he was noticed to have a generalized tonic-clonic seizure. He was given IV ativan, IV Keppra, IV labetalol as his BP jumped from 136/92 to 214/115. He was admitted to telemetry for observation. His CIWA score was 19. His UDS was negative , Aspirin level was less than 2.8, acetominiphen level less than 0.2 and alcohol level less than 3. His CT scan showed no acute intracranial pathology. His platelet was 19 with elevated AST/Alk Phis but normal ALT. His RBS was 150. His chest x-ray showed no acute cardiopulmonary findings. He has neurochecks q 1 hour and received Ativan PRn. He was given Thiamine 250 mg IV TID and a banana bag. He was referrd to PT, Psychiatry and Neurology. He was confused post seizure and Wernick -Korsakoff was entertained but as the days went , he became more alert and cooperative. Discussed case with Dr. Hayes and he recommended to keep him on the Leppra for 6 months and to follow up with in 1 week. He will be dischrged pending MRI results. ADDENDUM: His MRI came back abnormal. Will cancel his discharge and will do work up for acute /subacute infarcts. Willl add ASA and statin ( lower dose due to his h/o chronic alcohol abuse and probable liver cirrhosis). THIS WILL SERVE MY PROGRESS NOTES FOR TODAY. Procedures Performed: none Discharge Disposition: Home self care Disposition: Home self-care Condition: Fair Discharge Activity: Activity as tolerated Discharge Diet: General/regular food Referrals: Migue Mariano MD [Primary Care Provider] - Additional Patient Instructions (free text): [facility] at discharge, please call and fax them discharge information. may follow up with me one time only but needs to establish with a PCP. Please make an appointment with neurology for next week. Please make an appointment with psychiatry/psychology in 2 weeks. Prescriptions (Any new or edited meds): Acetaminophen [Tylenol] 500 mg PO Q6H PRN #90 tablet PRN Reason: Pain/Fever Albuterol Sulfate [Albuterol Sulfate 2.5 MG/3 ML] 2.5 mg IH Q6H PRN #3 vial.neb PRN Reason: Shortness Of Breath/Wheezing Lactulose [Enulose] 10 g PO TID #2 btl Lisinopril [Zestril] 5 mg PO BID #30 tablet Propranolol HCl [Inderal] 20 mg PO Q12H #60 tablet Thiamine HCl [Vitamin B-1] 250 mg PO TID #9 tablet Thiamine HCl [Vitamin B-1] 100 mg PO DAILY #30 tab levETIRAcetam [Keppra] 500 mg PO BID #90 tablet Complete Home Medications List: Complete Home Medication List: Albuterol Sulfate [Proair Respiclick] 180 mcg IH Q6H 06/20/16 Budesonide/Formoterol Fumarate [Symbicort 160-4.5 Mcg Inhaler] 20.4 gm IH BID Acetaminophen [Tylenol] 500 mg PO Q6H PRN #90 tablet 06/25/16 Albuterol Sulfate [Albuterol Sulfate 2.5 MG/3 ML] 2.5 mg IH Q6H PRN #3 vial.neb 06/25/16 Lactulose [Enulose] 10 g PO TID #2 btl 06/25/16 Lisinopril [Zestril] 5 mg PO BID #30 tablet 06/25/16 Propranolol HCl [Inderal] 20 mg PO Q12H #60 tablet 06/25/16 Thiamine HCl [Vitamin B-1] 100 mg PO DAILY #30 tab 06/25/16 Thiamine HCl [Vitamin B-1] 250 mg PO TID #9 tablet 06/25/16 levETIRAcetam [Keppra] 500 mg PO BID #90 tablet 06/25/16
--- NOTE | 2016-06-25 14:08 | PN ---
Progess Note - Interim Narrative: 06/25/16 14:06 MRI came back with multifocal infarcts. Sid do Echo with josé luis study, CUS, MRA of head. Discussed case with radiologist and neurology.
[2016-06-25] MEDS: ASPIRIN 325 MG TABLET.DR PO SCH (15:17)
[2016-06-25] MEDS ORDERED: PROCHLORPERAZINE MALEATE 10 MG TABLET PO ONE (19:30)
[2016-06-25] MEDS ORDERED: ZOLPIDEM TARTRATE 5 MG TABLET ONE (20:00)
[2016-06-25] MEDS: ROSUVASTATIN CALCIUM 10 MG TABLET PO SCH (20:01)
[2016-06-25] MEDS ORDERED: ROSUVASTATIN CALCIUM 10 MG TABLET PO SCH (21:00)
[2016-06-25] MEDS ORDERED: ZOLPIDEM TARTRATE 5 MG TABLET PO ONE (21:00)
[2016-06-25] MEDS: LORazepam 2 MG/ML DISP.SYRIN IM/IV PRN (21:17)
[2016-06-26] MEDS: FLUTICASONE/SALMETEROL 14 PUFF DISK.W.DEV IH SCH ×2 (06:30→18:27)
[2016-06-26 07:00] LABS: Hematocrit 39.5 % (42.0-52.0); Hemoglobin 13.2 gm/dL (13.5-18.0); Mean Cell Volume 93.8 fl (78-100); Mean Corpuscular Hemoglobin 31.4 pg (27-31); Mean Corpuscular Hgb Conc 33.4 g/dl (32-36); Mean Platelet Volume 11.3 fl (6.0-9.5); Neutrophil # 2.7 K/mm3 (1.3-6.0); Neutrophil % 47.5 % (42-75.0); Platelet Count 115 K/mm3 (150-450); Red Blood Count 4.21 M/mm3 (4.7-6.0); Red Cell Distribution Width 13.9 % (11.5-14.0); White Blood Count 5.6 K/mm3 (4.0-10.5)
[2016-06-26 07:22] LABS: Albumin * 2.9 gm/dl (3.4-5.0); Anion Gap 13.4 mmol/L (6.8-13.8); BUN/Creatinine Ratio 9.1 (9.0-21.6); Bilirubin, Total 1.5 mg/dL (0.0-1.1); CRP 5.4 mg/dL (0.0-0.9); Ca. Corrected For Albumin 9.5 mg/dL (8.4-10.2); Calcium * 8.9 mg/dL (7.9-10.9); Carbon Dioxide 26.2 mmol/L (24-32.6); Chol/HDL Risk Ratio 3.5 mg/dL (3.3-5.0); Potassium 3.6 mmol/L (3.4-4.6); Total Protein 7.2 gm/dL (6.2-8.2)
[2016-06-26] MEDS: HYDROcodone/ACETAMINOPHEN 1 EACH TABLET PO PRN ×4 (07:36→20:26)
[2016-06-26] MEDS: LACTULOSE 10 G/15 ML BTL PO SCH ×3 (10:01→16:20)
[2016-06-26] MEDS: LISINOPRIL 5 MG TABLET PO SCH ×2 (10:02→20:27)
[2016-06-26] MEDS: THIAMINE HCL 100 MG TABLET PO SCH ×3 (10:02→16:21)
[2016-06-26] MEDS: levETIRAcetam 500 MG TABLET PO SCH ×2 (10:02→20:27)
[2016-06-26] MEDS: ASPIRIN 325 MG TABLET.DR PO SCH (10:02)
[2016-06-26] MEDS: PROPRANOLOL HCL 20 MG TABLET PO SCH ×2 (10:02→20:27)
[2016-06-26] MEDS: ROSUVASTATIN CALCIUM 10 MG TABLET PO SCH (20:27)
[2016-06-26] MEDS ORDERED: diphenhydrAMINE HCL 50 MG CAPSULE PO ONE (21:01)
[2016-06-26] MEDS: LORazepam 2 MG/ML DISP.SYRIN IM/IV PRN (23:31)
[2016-06-27] MEDS: HYDROcodone/ACETAMINOPHEN 1 EACH TABLET PO PRN ×6 (00:30→21:36)
[2016-06-27] MEDS: FLUTICASONE/SALMETEROL 14 PUFF DISK.W.DEV IH SCH ×2 (06:23→20:09)
[2016-06-27] MEDS: THIAMINE HCL 100 MG TABLET PO SCH ×3 (08:58→17:37)
[2016-06-27] MEDS: ASPIRIN 325 MG TABLET.DR PO SCH (08:58)
[2016-06-27] MEDS: PROPRANOLOL HCL 20 MG TABLET PO SCH ×2 (08:58→20:09)
[2016-06-27] MEDS: levETIRAcetam 500 MG TABLET PO SCH ×2 (08:59→20:09)
[2016-06-27] MEDS: LISINOPRIL 5 MG TABLET PO SCH ×2 (08:59→20:09)
[2016-06-27] MEDS: LACTULOSE 10 G/15 ML BTL PO SCH ×3 (08:59→17:35)
[2016-06-27] MEDS ORDERED: diphenhydrAMINE HCL 50 MG CAPSULE PO PRN (11:25)
[2016-06-27] MEDS: LORATADINE 10 MG TABLET PO SCH (13:15)
[2016-06-27] MEDS: ROSUVASTATIN CALCIUM 10 MG TABLET PO SCH (20:09)
[2016-06-27] MEDS: LORazepam 2 MG/ML DISP.SYRIN IM/IV PRN (22:40)
[2016-06-28] MEDS: HYDROcodone/ACETAMINOPHEN 1 EACH TABLET PO PRN ×3 (02:00→12:49)
[2016-06-28] MEDS: FLUTICASONE/SALMETEROL 14 PUFF DISK.W.DEV IH SCH (06:41)
--- NOTE | 2016-06-28 08:04 | PN ---
Progess Note - Interim Narrative: 06/28/16 08:04 Await MRA results.
[2016-06-28] MEDS ORDERED: PARoxetine HCL 10 MG TABLET PO SCH (09:00)
[2016-06-28] MEDS: LACTULOSE 10 G/15 ML BTL PO SCH ×2 (09:44→12:45)
[2016-06-28] MEDS: THIAMINE HCL 100 MG TABLET PO SCH ×2 (09:45→12:45)
[2016-06-28] MEDS: ASPIRIN 325 MG TABLET.DR PO SCH (09:45)
[2016-06-28] MEDS: LISINOPRIL 5 MG TABLET PO SCH (09:45)
[2016-06-28] MEDS: levETIRAcetam 500 MG TABLET PO SCH (09:45)
[2016-06-28] MEDS: LORATADINE 10 MG TABLET PO SCH (09:45)
[2016-06-28] MEDS: PROPRANOLOL HCL 20 MG TABLET PO SCH (09:45)
--- NOTE | 2016-06-28 10:04 | PN ---
Subjective - Date and Time Seen Date: 06/26/16 Time: 11:00 Subjective Narrative: Patient seen and examined at bedside. No acute issues overnight. Patient denies any new issues or concerns and overall says he feels fine. Objective - Review of Systems Generalized/Overall Review: Reports: No Symptoms Reported EENTM: Reports: No Symptoms Reported Respiratory: Reports: No Symptoms Reported Cardiac: Reports: No Symptoms Reported Abdominal: Reports: No Symptoms Reported Genitourinary Symptoms: Reports: No Symptoms Reported Musculoskeletal Complaints: Reports: Other - Chronic pain in his back, knees and ankles Neurological: Reports: No Symptoms Reported Skin: Reports: No Symptoms Reported Endocrine: Reports: No Symptoms Reported Misc: All systems neg except as marked - Vitals Vitals: Last Vital Signs Temp 36.8 C 06/28/16 06:21 Pulse 69 06/28/16 09:45 Resp 16 06/28/16 06:21 BP 140/71 06/28/16 09:45 Pulse Ox 98 06/28/16 06:21 - Exam Constitutional: Present: Alert, Oriented x3, Cooperative, No distress ENT Exam: Present: hearing grossly normal, moist mucous membranes Respiratory: Present: lungs clear, normal breath sounds, no respiratory distress , no accessory muscle use Cardiovascular/Chest: Present: regular rate, rhythm, no edema, no murmur Abdomen: Present: soft, nontender, nondistended Extremity: Present: normal inspection, no pedal edema, no calf tenderness Skin Exam: Present: normal color, warm/dry Neurologic: Present: alert Cauti Physician Documentation - Urinary Catheter Management Urethral ([place]) Date of Insertion: 06/20/16 Time of Insertion: 15:00 Date of Removal: 06/21/16 Time of Removal: 08:56 Assessment/Plan Plan Narrative: Work-up for stroke ordered by Dr. Mariano. Await test results. MRA scheduled for Tuesday so patient will remain in the hospital at least until his MRA is completed on Tuesday. - Problems/Diagnosis (1) Ischemic stroke Problem: Acute (2) Alcohol withdrawal Problem: Acute Qualifiers: Complication of substance-induced condition: with delirium Qualified Code(s ): F10.231 - Alcohol dependence with withdrawal delirium
--- NOTE | 2016-06-28 10:06 | PN ---
Subjective - Date and Time Seen Date: 06/27/16 Time: 09:10 Subjective Narrative: Patient seen and examined at bedside. No acute issues overnight. Patient denies any new issues or concerns and overall says he feels fine. Objective - Review of Systems Generalized/Overall Review: Reports: No Symptoms Reported EENTM: Reports: No Symptoms Reported Respiratory: Reports: No Symptoms Reported Cardiac: Reports: No Symptoms Reported Abdominal: Reports: No Symptoms Reported Genitourinary Symptoms: Reports: No Symptoms Reported Musculoskeletal Complaints: Reports: Other - Chronic pain in his back, knees and ankles Neurological: Reports: No Symptoms Reported Skin: Reports: No Symptoms Reported Endocrine: Reports: No Symptoms Reported Misc: All systems neg except as marked - Vitals Vitals: Last Vital Signs Temp 36.8 C 06/28/16 06:21 Pulse 69 06/28/16 09:45 Resp 16 06/28/16 06:21 BP 140/71 06/28/16 09:45 Pulse Ox 98 06/28/16 06:21 - Exam Constitutional: Present: Alert, Oriented x3, No distress ENT Exam: Present: hearing grossly normal, moist mucous membranes Respiratory: Present: lungs clear, normal breath sounds, no respiratory distress , no accessory muscle use Cardiovascular/Chest: Present: regular rate, rhythm, no edema, no murmur Abdomen: Present: soft, nontender, nondistended Extremity: Present: normal inspection, no pedal edema, no calf tenderness Cauti Physician Documentation - Urinary Catheter Management Urethral ([place]) Date of Insertion: 06/20/16 Time of Insertion: 15:00 Date of Removal: 06/21/16 Time of Removal: 08:56 Assessment/Plan Plan Narrative: No new issues or concerns. MRA scheduled for Tuesday so patient will remain in the hospital at least until his MRA is completed on Tuesday. - Problems/Diagnosis (1) Ischemic stroke Problem: Acute (2) Alcohol withdrawal Problem: Acute Qualifiers: Complication of substance-induced condition: with delirium Qualified Code(s ): F10.231 - Alcohol dependence with withdrawal delirium
--- NOTE | 2016-06-28 12:02 | ECHO ---
This report is available in the EMR
--- NOTE | 2016-06-28 12:34 | DS ---
(1) Stroke Diagnosis(s): multifocal , left cerebellum, right occipital lobe, precentral gyrus. Problem: Acute Qualifiers: CVA mechanism: unspecified Qualified Code(s): I63.9 - Cerebral infarction, unspecified (2) Seizures Diagnosis(s): EEG showed mild diffuse cerebral dysfunction. Problem: Resolved (3) Alcohol withdrawal Problem: Resolved Qualifiers: Complication of substance-induced condition: with delirium Qualified Code(s ): F10.231 - Alcohol dependence with withdrawal delirium (4) Hypertension Problem: Chronic Qualifiers: Hypertension type: essential hypertension Qualified Code(s): I10 - Essential (primary) hypertension (5) Serum ammonia increased Problem: Resolved (6) Thrombocytopenia Diagnosis(s): improved from 19 to 115. 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 Patient dozed on and off and was a poor historian. As per emergency room notes , the patient was noticed to have had a seizure activity in a store by bystanders and was brought to the emergency room . In the emergency room, the patient had another seizure activity where he was noticed to have a generalized tonic-clonic seizure. He was given IV ativan, IV Keppra, IV labetalol as his BP jumped from 136/92 to 214/115. He was admitted to telemetry for observation. His CIWA score was 19. His UDS was negative , Aspirin level was less than 2.8, acetominiphen level less than 0.2 and alcohol level less than 3. His CT scan showed no acute intracranial pathology. His platelet was 19 with elevated AST/Alk Phis but normal ALT. His RBS was 150. His chest x-ray showed no acute cardiopulmonary findings. He has neurochecks q 1 hour and received Ativan PRn. He was given Thiamine 250 mg IV TID and a banana bag. He was referrd to PT, Psychiatry and Neurology. He was confused post seizure and Wernick -Korsakoff was entertained but as the days went , he became more alert and cooperative making it unlikely. He complained of headaches even before his seizure episode and so an MRI of the brain was done . It showed multifocal punctate lesion consistent with acute to subacute infarcts- left cerebellum, right occiptal lobe, mark, precentral gyrus. It also showed chronic atrophy and ischemic white matter changes. Correlate with central pontine myelolysis which he did not exhibit. His CUS showed no hemodynamic stenosis. His Echo showed mild LVH, negative bubble study. His EEG showed mild diffuse cerebral dysfunction. 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 His MRA of the neck confirmed it. He was on Plavix at home. ASA was added. Work up for vasculitis was sent out. He is stable to be discharged today and needs to follow up with is PCP in 1 week and garrett make an appointment with Neurology. Procedures Performed: none Discharge Disposition: Home self care Disposition: Home self-care Condition: Fair Discharge Activity: Activity as tolerated Discharge Diet: Low salt, Low fat/chol Referrals: Migue Mariano MD [Primary Care Provider] - Problem Oriented Discharge Instructions to Patient/Family: Alcoholic Liver Disease, [id number], Alcohol Withdrawal Additional Patient Instructions (free text): [facility] banner at discharge, please call and fax them discharge information. Follow up with his PCP in 1 week. Please make an appointment with neurology for this week or next week. Follow up with DR. Barber on June at 1:30 PM.Nuerologist office in [facility] Follow up with Dr. Mariano on June at 2:45 PM one time appointment. Prescriptions (Any new or edited meds): Acetaminophen [Tylenol] 500 mg PO Q6H PRN #90 tablet PRN Reason: Pain/Fever Albuterol Sulfate [Albuterol Sulfate 2.5 MG/3 ML] 2.5 mg IH Q6H PRN #3 vial.neb PRN Reason: Shortness Of Breath/Wheezing Aspirin [Aspirin EC] 81 mg PO DAILY #30 tablet. Atorvastatin Calcium 20 mg PO HS #30 tablet Clopidogrel Bisulfate [Plavix] 1 tab PO DAILY #30 tablet Lactulose [Enulose] 10 g PO TID #2 btl Propranolol HCl [Inderal] 20 mg PO Q12H #60 tablet Thiamine HCl [Vitamin B-1] 100 mg PO DAILY #30 tab levETIRAcetam [Keppra] 500 mg PO BID #90 tablet Complete Home Medications List: Complete Home Medication List: Albuterol Sulfate [Proair Respiclick] 180 mcg IH Q6H 06/20/16 Budesonide/Formoterol Fumarate [Symbicort 160-4.5 Mcg Inhaler] 20.4 gm IH BID Acetaminophen [Tylenol] 500 mg PO Q6H PRN #90 tablet 06/25/16 Albuterol Sulfate [Albuterol Sulfate 2.5 MG/3 ML] 2.5 mg IH Q6H PRN #3 vial.neb 06/25/16 Amitriptyline HCl [Elavil] 50 mg PO HS 06/25/16 Famotidine 20 mg PO DAILY 06/25/16 Ipratropium/Albuterol Sulfate [Combivent Respimat Inhal [place]] 1 puff IH QID Lactulose [Enulose] 10 g PO TID #2 btl 06/25/16 Paroxetine HCl [Paxil] 30 mg PO DAILY 06/25/16 Propranolol HCl [Inderal] 20 mg PO Q12H #60 tablet 06/25/16 Thiamine HCl [Vitamin B-1] 100 mg PO DAILY #30 tab 06/25/16 levETIRAcetam [Keppra] 500 mg PO BID #90 tablet 06/25/16 Aspirin [Aspirin EC] 81 mg PO DAILY #30 tablet. 06/28/16 Atorvastatin Calcium 20 mg PO HS #30 tablet 06/28/16 Clopidogrel Bisulfate [Plavix] 1 tab PO DAILY #30 tablet 06/28/16
[2016-06-28 14:44] VITALS: BP 142/78
[2016-06-28] MEDS ORDERED: AMITRIPTYLINE HCL 25 MG TABLET PO SCH (21:00)
[2016-07-01 01:23] LABS: P-ANCA Titer DNR titer (<1:20)
== END 2016-06-28 16:56 | disposition home health service (06) | DRG 65 ==
LOC: ER 09:40 → MS 12:27 → UNDODISIN 06-23 10:00
PROVIDERS: ADMIT Internal Medicine; ATTEND Internal Medicine
PROC: HZ2ZZZZ Detoxification Services for Substance Abuse Treatment (ICD-10-PCS; principal; 2016-06-20)
DX: I63.9 Cerebral infarction, unspecified (principal); G40.509 Epileptic seizures related to external causes, not intractable, without status epilepticus; F10.231 Alcohol dependence with withdrawal delirium; F10.239 Alcohol dependence with withdrawal, unspecified; I15.9 Secondary hypertension, unspecified; R74.0 Nonspecific elevation of levels of transaminase and lactic acid dehydrogenase [LDH]; R79.89 Other specified abnormal findings of blood chemistry; D69.6 Thrombocytopenia, unspecified; F17.210 Nicotine dependence, cigarettes, uncomplicated; R56.9 Unspecified convulsions; Z95.5 Presence of coronary angioplasty implant and graft
CPT/HCPCS: 36415; 70450; 70544; 70549; 70553; 71010; 73502; 73610; 80053; 80061; 80307; 81001; 82140; 82150; 82248; 82607; 82746; 83605; 83690; 83735; 84145; 84484; 85025; 85610; 85652; 85730; 86021; 86140; 86160; 86162; 87040; 93005; 93306; 93880; 94640; 95812; 96365; 96367; 96375; 97110; 97116; 97162; 99284; G0480; G0481

== ENCOUNTER 2016-09-14 14:06 | Emergency (ER) | payer OTHER ==
[2016-09-14 14:12] VITALS: BP 134/89
[2016-09-14] MEDS ORDERED: NORMAL SALINE 1,000 ML IV ONE (14:15)
--- OUTSIDE RECORDS SUMMARY | 2016-09-14 14:24 | XMS REPORT | Continuity of Care Document ---
:1960 Author Organization [facility] ([facility]) Address [address] [place] [address] Phone [phone] Care Team Providers Name Role Phone [facility] Primary Care Provider [phone] Source Comments This disclosure is being made pursuant to the Care Everywhere program, applicable federal and state laws, and may not contain all informaitonavailable regarding this patient.[facility] ([facility]) Active Allergies and Adverse Reactions Allergen [...]
[2016-09-14 14:29] LABS: Hematocrit 42.5 % (42.0-52.0); Mean Cell Volume 89.3 fl (78-100); Mean Corpuscular Hemoglobin 31.5 pg (27-31); Mean Corpuscular Hgb Conc 35.3 g/dl (32-36); Mean Platelet Volume 9.4 fl (6.0-9.5); Neutrophil # 6.8 K/mm3 (1.3-6.0); Neutrophil % 65.9 % (42-75.0); Platelet Count 281 K/mm3 (150-450); Red Blood Count 4.76 M/mm3 (4.7-6.0); Red Cell Distribution Width 13.8 % (11.5-14.0); White Blood Count 10.3 K/mm3 (4.0-10.5)
--- NOTE | 2016-09-14 14:29 | ERNOTE ---
Medical Problem HPI - Narrative Date of Service: 09/14/16 - General Chief Complaint: General Assessment Time Seen by Provider: 09/14/16 14:16 Source: patient Exam Limitations: no limitations - Immun/Allergies/Home Medications Immunizations: IMMUNIZATION HX Immunizations Up to Date No History of Influenza Vaccine No Hx Pneumococcal Vaccination No Allergies/Adverse Reactions: Allergies Sulfa (Sulfonamide Antibiotics) [Sulfa(Sulfonamide Antibiotics)] Allergy (Mild, Verified 09/14/16 14:12) Itching gabapentin Allergy (Verified 09/14/16 14:12) Home Medications: HOME MEDICATIONS Albuterol Sulfate [Proair Respiclick] 180 mcg IH Q6H 06/20/16 [Last Taken Unknown] Budesonide/Formoterol Fumarate [Symbicort 160-4.5 Mcg Inhaler] 20.4 gm IH BID [Last Taken Unknown] Acetaminophen [Tylenol] 500 mg PO Q6H PRN #90 tablet 06/25/16 [Last Taken Unknown] Albuterol Sulfate [Albuterol Sulfate 2.5 MG/3 ML] 2.5 mg IH Q6H PRN #3 vial.neb 06/25/16 [Last Taken Unknown] Amitriptyline HCl [Elavil] 50 mg PO HS 06/25/16 [Last Taken Unknown] Famotidine 20 mg PO DAILY 06/25/16 [Last Taken Unknown] Ipratropium/Albuterol Sulfate [Combivent Respimat Inhal [place]] 1 puff IH QID [Last Taken Unknown] Lactulose [Enulose] 10 g PO TID #2 btl 06/25/16 [Last Taken Unknown] PARoxetine HCL [Paxil] 30 mg PO DAILY 06/25/16 [Last Taken Unknown] Propranolol HCl [Inderal] 20 mg PO Q12H #60 tablet 06/25/16 [Last Taken Unknown] Thiamine HCl [Vitamin B-1] 100 mg PO DAILY #30 tab 06/25/16 [Last Taken Unknown] levETIRAcetam [Keppra] 500 mg PO BID #90 tablet 06/25/16 [Last Taken Unknown] Aspirin [Aspirin EC] 81 mg PO DAILY #30 tablet. 06/28/16 [Last Taken Unknown] Atorvastatin Calcium 20 mg PO HS #30 tablet 06/28/16 [Last Taken Unknown] Clopidogrel Bisulfate [Plavix] 1 tab PO DAILY #30 tablet 06/28/16 [Last Taken Unknown] Ropinirole ER 09/03/16 [Last Taken Unknown] - History of Present History Narrative: Pt. comes in with c/o high lactic acid as being reported by his PCP at [facility]. Pt. has a hx of hepatitis C and ETOH withdrawl and denies any pain, SOB, NVD, fever, recent illness,or other symptoms but states taht he was hospitalized for withdrawl in june and has missed a couple of doses of Lactulose the passed week. Review of Systems - Review of Systems Constitutional: Present: no symptoms reported. Absent: recent illness, fever, chills, weakness, fatigue, malaise EYE: Present: no symptoms reported ENT: Present: no symptoms reported Respiratory: Present: no symptoms reported. Absent: shortness of breath, cough , wheezing Cardiology: Present: no symptoms reported. Absent: chest pain, palpitations, edema Gastrointestinal/Abdominal: Present: no symptoms reported. Absent: nausea, vomiting, diarrhea Genitourinary: Present: no symptoms reported Musculoskeletal: Present: no symptoms reported. Absent: back pain, joint pain Skin: Present: no symptoms reported. Absent: rash, change in color Neurological: Present: no symptoms reported. Absent: headache, dizziness/light- headedness, numbness, tingling All Other Systems: All systems neg except as marked - Patient's Past Medical History Patient History - Medical: Alcohol Abuse, Anxiety, Depression, GERD, Liver Disease, Obesity Patient History - Cardiac/Respiratory: Coronary Heart Disease, Hypertension Patient History - Cancer: No Hx of Cancer, Other Patient History - Surgical Procedures: Other Patient History - Other: None - Social History Living Situations: alone Psych History: No pertinent hx Smoking Status: Current every day smoker Have you smoked in the past 12 months: Yes Alcohol Use: heavy Drug Use: none - Immunizations Immunizations Up to Date: No Hx Pneumococcal Vaccination: No History of Influenza Vaccine: No Physical Exam - Physical Exam General Appearance: Present: wd/wn, alert, no apparent distress Eye Exam: Normal inspection: bilateral, PERRL: bilateral, EOMI: bilateral Ears, Nose, Throat: Present: normal ENT inspection, cerumen impaction Neck: Present: normal inspection, nontender. Absent: lymphadenopathy (R), lymphadenopathy (L) Respiratory: Present: no respiratory distress, normal breath sounds, no accessory muscle use, chest nontender, lungs clear Cardiovascular/Chest: Present: regular rate, rhythm, no murmur, normal peripheral pulses Gastrointestinal/Abdominal: Present: normal bowel sounds, nontender, distended, hepatomegaly Back Exam: Present: normal inspection, normal range of motion, no CVA tenderness , no vertebral tenderness Extremity Exam: Present: normal inspection, non-tender, normal range of motion, no edema Neurological Exam: Present: alert, oriented, normal mood/affect, no motor/ sensory deficits Skin Exam: Present: normal color, warm/dry. Absent: jaundice, pallor, skin rash ED Progress - Date and Time Seen: Date and Time: 09/14/16 14:52 Pt. is not painful in his abdomen so I feel that this is not likely spontaneous bacterial peritonitis. Also lactic acid is lower but likely elevated related to liver failure. Procalcitonin negative so this is not infection related lactic acidosis. 09/14/16 15:[address] Osman and we do not feel that performing liver US would be beneficial for treatment of liver disease at this time. - Results and Orders Patient's Lab Results:: I have reviewed the patient's lab results. - Vital Signs Patient's Vital Signs:: I have reviewed the patient's vital signs. Vital Signs: Vital Signs 09/14/16 14:10 Temperature 36.7 C Pulse Rate 100 Respiratory 14 Rate Blood Pressure 134/89 O2 Sat by Pulse 98 Oximetry - Progress/Reassessment Chief Complaint: General Assessment Departure - Departure Clinical Impression: Liver disease, Lactic acid increased Disposition: Home self-care Condition: Good Instructions: Lactic Acid Test Additional Instructions: Please follow up with primary provider in 2-3 days. Referrals: Petty Ye FNP [Primary Care Provider] -
[2016-09-14 14:43] LABS: Prothrombin Time (Patient) 10.3 Seconds (9.4-11.4)
[2016-09-14 14:44] LABS: ALT 87 U/L (19-67); AST 59 U/L (0-48); Albumin * 3.6 gm/dl (3.4-5.0); Alkaline Phosphatase * 92 U/L (50-170); Anion Gap 16.1 mmol/L (6.8-13.8); BUN/Creatinine Ratio 8.5 (9.0-21.6); Bilirubin, Total 0.5 mg/dL (0.0-1.1); Blood Urea Nitrogen 8 mg/dL (6-23); Ca. Corrected For Albumin 9.3 mg/dL (8.4-10.2); Calcium * 9.3 mg/dL (7.9-10.9); Carbon Dioxide 25.7 mmol/L (24-32.6); Chloride 102 mmol/L (97-106); Glucose * 137 mg/dL (70-110); Potassium 3.8 mmol/L (3.4-4.6); Sodium 140 mmol/L (132-142); Total Protein 8.1 gm/dL (6.2-8.2)
[2016-09-14 14:48] LABS: Urine Bilirubin Negative (NEGATIVE); Urine Blood Negative /ul (NEGATIVE); Urine Ketone Negative (NEGATIVE); Urine Nitrite Negative (NEGATIVE); Urine Protein Negative (NEGATIVE); Urine Urobilinogen Normal (NORMAL); Urine pH 6.5 pH (5.0-7.0)
[2016-09-14 14:52] LABS: INR 0.99 INR (0.90-1.10)
[2016-09-14 14:55] LABS: Urine Appearance Clear; Urine Bacteria None Seen; Urine Color Yellow; Urine RBC None Seen /hpf (0-5); Urine WBC 0-5 /hpf (0-5)
[2016-09-14 15:03] LABS: Cocaine Ur Negative (NEGATIVE); Urine Barbiturate Negative (NEGATIVE); Urine Benzodiazepines Negative (NEGATIVE); Urine Opiates Negative (NEGATIVE); Urine PCP Negative (NEGATIVE); Urine THC Negative (NEGATIVE)
== END 2016-09-14 15:20 | disposition home or self-care (01) ==
LOC: ER 14:06
DX: K76.9 Liver disease, unspecified (principal); E87.2 Acidosis; F17.200 Nicotine dependence, unspecified, uncomplicated
CPT/HCPCS: 36415; 80053; 80307; 81001; 82140; 83605; 84145; 85025; 85610; 99282; G0481

== ENCOUNTER 2018-01-29 17:59 | Observation (INO) ==
--- NOTE | 2018-01-29 18:23 | ERNOTE ---
Trauma/Assault HPI - General Stated Complaint: fall Time Seen by Provider: 01/29/18 18:12 Source: patient, EMS Exam Limitations: clinical condition - Immun/Allergies/Home Medications Immunizations: IMMUNIZATION HX Immunizations Up to Date Yes History of Influenza Vaccine No Hx Pneumococcal Vaccination No Allergies/Adverse Reactions: Allergies Sulfa (Sulfonamide Antibiotics) [Sulfa(Sulfonamide Antibiotics)] Allergy (Mild, Verified 01/26/18 13:26) Itching gabapentin Allergy (Verified 01/26/18 13:26) Home Medications: HOME MEDICATIONS Acetaminophen [Tylenol] 500 mg PO Q6H PRN #90 tab 06/25/16 [Last Taken Unknown] Albuterol Sulfate [Albuterol Sulfate 2.5 MG/3 ML] 2.5 mg INHALATION Q6H PRN #3 vial.neb 06/25/16 [Last Taken Unknown] Thiamine HCl [Vitamin B-1] 100 mg PO DAILY #30 tab 06/25/16 [Last Taken Unknown] paroxetine 30 mg tablet 30 mg PO DAILY #30 tab 01/23/18 [Last Taken Unknown] albuterol sulfate 90 mcg/actuation breath activated powder inhaler 180 mcg INHALATION Q6H #1 ea 01/26/18 [Last Taken Unknown] amitriptyline 50 mg tablet 50 mg PO HS #30 tab 01/26/18 [Last Taken Unknown] aspirin 81 mg tablet,delayed release 81 mg PO DAILY #30 tablet.dr 01/26/18 [Last Taken Unknown] budesonide-formoterol HFA 160 mcg-4.5 mcg/actuation aerosol inhaler 2 puff INHALATION BID #10.2 g 01/26/18 [Last Taken Unknown] bupropion HCl XL 150 mg 24 hr tablet, extended release 150 mg PO QAM #30 tab 01/26/18 [Last Taken Unknown] clopidogrel 75 mg tablet 75 mg PO DAILY #30 tab 01/26/18 [Last Taken Unknown] ipratropium 20 mcg-albuterol 100 mcg/actuation mist for inhalation 1 puff INHALATION QID #4 g 01/26/18 [Last Taken Unknown] levetiracetam 500 mg tablet 500 mg PO BID #90 tab 01/26/18 [Last Taken Unknown] ranitidine 150 mg tablet 150 mg PO BID #60 tab 01/26/18 [Last Taken Unknown] albuterol sulfate HFA 90 mcg/actuation aerosol inhaler 2 puff IH Q6H PRN #18 g 01/27/18 [Last Taken Unknown] Atorvastatin Calcium 80 mg PO HS 01/29/18 [Last Taken Unknown] Metoprolol Tartrate [Lopressor] 25 mg PO BID 01/29/18 [Last Taken Unknown] Pregabalin [Lyrica] 150 mg PO TID 01/29/18 [Last Taken Unknown] Tamsulosin HCl [Flomax] 0.4 mg PO DAILY 01/29/18 [Last Taken Unknown] rOPINIRole HCL [Requip] 0.5 mg PO DAILY 01/29/18 [Last Taken Unknown] - History of Present Illness Narrative: Patient states that he slipped on something at [email or web address] and hit his knee and possibly his head. Unclear whether the somewhat slower sensorium secondary to previous traumatic brain injury, alcohol intoxication or new brain injury. Location Occurred: Reports: other - grocery store Pain Location: Reports: head, lower extremity - right knee Method of Injury: Reports: fall Severity: moderate Loss of Consciousness: Reports: no loss of consciousness, remembers the event Associated Symptoms - Trauma: Reports: denies symptoms Review of Systems - Review of Systems Constitutional: Present: See HPI EYE: Present: no symptoms reported ENT: Present: no symptoms reported Respiratory: Present: no symptoms reported Cardiology: Present: no symptoms reported Gastrointestinal/Abdominal: Present: no symptoms reported Genitourinary: Present: no symptoms reported Musculoskeletal: Present: See HPI Skin: Present: no symptoms reported Neurological: Present: See HPI Endocrine: Present: no symptoms reported Hematologic/Lymphatic: Present: no symptoms reported Psych: Present: no symptoms reported Medical History (Last Updated 01/26/18 @ 13:33 by Shannon Mercado RN) Essential hypertension (Chronic) COPD (chronic obstructive pulmonary disease) (Chronic) Bulging disc CVA (cerebral vascular accident) Onset Date: ~07/2017 sent to [facility] from [facility] Chronic lower back pain Depressed Onset Date: Unknown GERD (gastroesophageal reflux disease) Gingivitis Pulmonary nodule Ischemic stroke (Inactive) Surgical History: Surgical History (Last Updated 01/26/18 @ 13:31 by Shannon Mercado RN) H/O oral surgery history of finger surgery H/O angiography Onset Date: ~01/[address] Rick ORTIZ Family History: Family History (Last Updated 01/26/18 @ 13:32 by Shannon Mercado RN) Mother Cardiac abnormality Father Cardiac abnormality Brother Cancer lung Social History: Preferred Language Sinhala Do you have any baptist or No cultural preference? Smoking Status Current every day smoker Psych History No pertinent hx Alcohol Use heavy Drug Use cocaine,marijuana,meth (Last Updated 01/26/18 @ 18:12 by Herber Rivas DO) No Social History Section defined Physical Exam - Physical Exam General Appearance: Present: wd/wn, moderate distress Head Exam: Present: other - no obvious injury noted on the head however Eye Exam: Normal inspection: bilateral, PERRL: bilateral Ears, Nose, Throat: Present: normal ENT inspection, H, normal pharynx Neck: Present: normal inspection, nontender Respiratory: Present: no respiratory distress, normal breath sounds, no accessory muscle use, chest nontender, lungs clear Cardiovascular/Chest: Present: regular rate, rhythm, no murmur, normal peripheral pulses Gastrointestinal/Abdominal: Present: normal bowel sounds, nontender, nondistended, soft, no organomegaly Rectal Exam: Present: deferred Back Exam: Present: normal inspection, normal range of motion Extremity Exam: Present: normal range of motion, no edema, other - tenderness at the right knee area Neurological Exam: Present: alert, oriented, other - slow to respond with some slurred speech Skin Exam: Present: normal color, warm/dry Lymphatic Exam: Present: no adenopathy ED Progress - Results and Orders Patient's Lab Results:: I have reviewed the patient's lab results. - Vital Signs Patient's Vital Signs:: I have reviewed the patient's vital signs. Vital Signs: Vital Signs 01/29/18 17:59 Temperature 36.5 C Pulse Rate 82 Respiratory Rate 24 H Blood Pressure 142/78 H O2 Sat by Pulse Oximetry 97 - X-Ray X-Ray #1 X-Ray: knee Interpretation: Reviewed by me - CT/Ultrasound CT/Ultrasound Narrative: CT the head and the knee reviewed by me - Progress/Reassessment Chief Complaint: Fall Plan - Plan Plan: It is unclear to me exactly what is happening with Mr. Solis. Patient has a long-standing history of alcohol and drug abuse, and admitted to drinking prior to going to the store. He also has a history of seizure disorder and is not taking any of his medications for 6 days. He states he tripped over a bread rack, but does not believe that he struck his head, only his right knee. Patient arrives in the emergency department and is slow to respond and is not at his normal baseline according to his mother, who lives next door, and his brother. Patient did not appear to be incontinent, but it is possible that he is simply postictal that is being drawn out by his alcohol of 40. Patient is going to be placed in the hospital overnight, I am repeating the alcohol level as well as a Keppra level, and I'm starting him on 1 g of Keppra IV in the emergency department. Departure Clinical Impression: Seizure disorder Altered mental status Qualifiers: Altered mental status type: somnolence Qualified Code(s): R40.0 - Somnolence Concussion Qualifiers: Encounter type: initial encounter Loss of consciousness presence/duration: wi thout LOC Qualified Code(s): S06.0X0A - Concussion without loss of consciousness, initial encounter - Departure Disposition: Still a patient Condition: Fair Critical Care Time - Critical Care Critical Time Spent:: No Total time (mins) Spent:: 0
[2018-01-29 18:31] LABS: Hematocrit 45.5 % (42.0-52.0); Hemoglobin 15.3 gm/dL (13.5-18.0); Mean Cell Volume 91.9 fl (78-100); Mean Corpuscular Hemoglobin 30.9 pg (27-31); Mean Corpuscular Hgb Conc 33.6 g/dl (32-36); Mean Platelet Volume 9.7 fl (8-11.3); Neutrophil % 66.7 % (42-75.0); Platelet Count 178 K/mm3 (150-450); Red Blood Count 4.95 M/mm3 (4.7-6.0); Red Cell Distribution Width 13.6 % (11.5-14.0)
[2018-01-29 18:46] LABS: Albumin * 3.8 gm/dl (3.4-5.0); Anion Gap 5.4 mmol/L (6.8-13.8); BUN/Creatinine Ratio 13.7 (9.0-21.6); Bilirubin, Total 0.3 mg/dL (0.0-1.1); Ca. Corrected For Albumin 8.5 mg/dL (8.4-10.2); Calcium * 8.7 mg/dL (7.9-10.9); Carbon Dioxide 33.2 mmol/L (24-32.6); Magnesium 1.9 mg/dL (1.2-2.8); Potassium 4.6 mmol/L (3.4-4.6); Total Protein 8.1 gm/dL (6.2-8.2)
[2018-01-29 20:08] LABS: Cocaine Ur Negative (NEGATIVE); Urine Barbiturate Negative (NEGATIVE); Urine PCP Negative (NEGATIVE); Urine THC Negative (NEGATIVE)
[2018-01-29 20:32] LABS: Urine Benzodiazepines Positive (NEGATIVE)
[2018-01-29] MEDS ORDERED: THIAMINE HCL 100 MG in NORMAL SALINE 50 ML IV ONE (20:32)
[2018-01-29 20:33] LABS: Urine Opiates Positive (NEGATIVE)
[2018-01-30] MEDS ORDERED: NICOTINE 21 MG PATC TD SCH (00:15)
--- NOTE | 2018-01-30 10:25 | HP ---
Chief Complaint - Chief Complaint Date of Service: 01/30/18 Time of Service: 10:15 Chief Complaint: Fall History of Present Illness: The patient was at [facility] last night (01/29/2018) and he accidentally tripped over a bread crate that was on the ground causing him to fall and hit his head. He denies any LOC. He denies any headache this AM. He denies any N/V, ringing in his ears or changes in vision. He states he feels completely fine and is at his baseline. Of note, the patient has a history of alcohol use disorder and seizures. Medical History (Last Reviewed 02/09/18 @ 13:41 by Joana Hodgson) SAMANTA and COPD overlap syndrome (Chronic) Insomnia (Chronic) Asthma with COPD (Chronic) Xerostomia (Chronic) Essential hypertension (Chronic) COPD (chronic obstructive pulmonary disease) (Chronic) Alcohol abuse Bulging disc CVA (cerebral vascular accident) Onset Date: ~07/2017 sent to [facility] from [facility] Chronic lower back pain Depressed Onset Date: Unknown GERD (gastroesophageal reflux disease) Gingivitis Pulmonary nodule Ischemic stroke (Inactive) Surgical History: Surgical History (Last Reviewed 02/09/18 @ 13:41 by Joana Hodgson) H/O oral surgery history of finger surgery H/O angiography Onset Date: ~01/[address] Rick ORTIZ Family History: Family History (Last Reviewed 02/09/18 @ 13:41 by Joana Hodgson) Mother Cardiac abnormality Father Cardiac abnormality Brother Cancer lung Social History: Patient Lives/Resources Home Utilized Occupation Disabled Preferred Language Cymro Do you have any christian or No cultural preference? Smoking Status Current every day smoker Have you smoked in the past 12 Yes months Do you dip or chew tobacco No Psych History No pertinent hx Alcohol Use heavy Drug Use cocaine,marijuana,meth (Last Updated 01/26/18 @ 18:12 by Herber Rivas DO) No Social History Section defined Review Of Systems (GEN) - Review of Systems Generalized/Overall Review: Present: No Symptoms Reported EENTM: Absent: Blurred Vision, Double Vision Abdominal: Absent: Nausea, Vomiting Musculoskeletal: Present: Other - chronic pain, no new pain from fall Neurological: Absent: Headache Misc: All systems neg except as marked Immunizations: IMMUNIZATION HX Immunizations Up to Date Yes History of Influenza Vaccine No Hx Pneumococcal Vaccination No Allergies/Adverse Reactions: Allergies Allergy/AdvReac Type Severity Reaction Status Date / Time Sulfa (Sulfonamide Allergy Mild Itching Verified 02/09/18 13:40 Antibiotics) [Sulfa(Sulfonamide Antibiotics)] gabapentin Allergy Verified 02/09/18 13:40 Home Medications: HOME MEDICATIONS Acetaminophen [Tylenol] 500 mg PO Q6H PRN #90 tab 06/25/16 [Last Taken Unknown] Albuterol Sulfate [Albuterol Sulfate 2.5 MG/3 ML] 2.5 mg INHALATION Q6H PRN #3 vial.neb 06/25/16 [Last Taken Unknown] Thiamine HCl [Vitamin B-1] 100 mg PO DAILY #30 tab 06/25/16 [Last Taken Unknown] paroxetine 30 mg tablet 30 mg PO DAILY #30 tab 01/23/18 [Last Taken Unknown] albuterol sulfate 90 mcg/actuation breath activated powder inhaler 180 mcg INHALATION Q6H #1 ea 01/26/18 [Last Taken Unknown] aspirin 81 mg tablet,delayed release 81 mg PO DAILY #30 tablet.dr 01/26/18 [Last Taken Unknown] budesonide-formoterol HFA 160 mcg-4.5 mcg/actuation aerosol inhaler 2 puff INHALATION BID #10.2 g 01/26/18 [Last Taken Unknown] bupropion HCl XL 150 mg 24 hr tablet, extended release 150 mg PO QAM #30 tab 01/26/18 [Last Taken Unknown] clopidogrel 75 mg tablet 75 mg PO DAILY #30 tab 01/26/18 [Last Taken Unknown] ipratropium 20 mcg-albuterol 100 mcg/actuation mist for inhalation 1 puff INHALATION QID #4 g 01/26/18 [Last Taken Unknown] levetiracetam 500 mg tablet 500 mg PO BID #90 tab 01/26/18 [Last Taken Unknown] ranitidine 150 mg tablet 150 mg PO BID #60 tab 01/26/18 [Last Taken Unknown] albuterol sulfate HFA 90 mcg/actuation aerosol inhaler 2 puff IH Q6H PRN #18 g 01/27/18 [Last Taken Unknown] Atorvastatin Calcium 80 mg PO HS 01/29/18 [Last Taken Unknown] Metoprolol Tartrate [Lopressor] 25 mg PO BID 01/29/18 [Last Taken Unknown] Pregabalin [Lyrica] 150 mg PO TID 01/29/18 [Last Taken Unknown] rOPINIRole HCL [Requip] 0.5 mg PO DAILY 01/29/18 [Last Taken Unknown] tamsulosin 0.4 mg capsule 0.4 mg PO DAILY #30 cap 02/09/18 [Last Taken Unknown] Exam - Exam Vital Signs: Vital Signs - Last Taken Temp 36.8 C 01/30/18 06:41 Pulse 80 01/30/18 08:00 Resp 18 01/30/18 06:41 BP 149/83 H 01/30/18 06:41 Pulse Ox 97 01/30/18 06:41 Constitutional: Present: Alert, Oriented x3, Cooperative, No distress, Obese ENT Exam: Present: moist mucous membranes Eye Exam: bilateral eye: normal inspection Neck: Present: non-tender, full range of motion, normal inspection, trachea midline Respiratory: Present: decreased breath sounds Cardiovascular/Chest: Present: regular rate, rhythm Abdomen: Present: soft, nontender, nondistended, obese Extremity: Present: non-tender, normal inspection Skin Exam: Present: normal color, warm/dry Neurologic: Present: no motor/sensory deficits, alert, normal mood/affect, oriented x 3 Appearance: Present: appropriate appearance, appropriate insight, no memory impairment Eye contact: Present: cooperative Thoughts: Present: normal thought pattern, no apparent hallucination Diagnostic Studies: Abnormal Lab Results 01/29/18 01/29/18 01/29/18 Range/Units 18:25 18:25 19:35 Immature Gran % (Auto) 0.60 H (0.001-0.429) % Immature Gran # (Auto) 0.05 H (0.000-0.0310) K/mm3 Monocytes % 9.8 H (0.0-9) % Sodium 131 L (132-142) mmol/L Carbon Dioxide 33.2 H (24-32.6) mmol/L Anion Gap 5.4 L (6.8-13.8) mmol/L Urine Opiates Screen Positive H (NEGATIVE) U Benzodiazepines Scrn Positive H (NEGATIVE) Laboratory Results WBC 9.0 K/mm3 (4.0-10.5) 01/29/18 18:25 RBC 4.95 M/mm3 (4.7-6.0) 01/29/18 18:25 Hgb 15.3 gm/dL (13.5-18.0) 01/29/18 18:25 Hct 45.5 % (42.0-52.0) 01/29/18 18: MCV 91.9 fl (78-100) 01/29/18 18: MCH 30.9 pg (27-31) 01/29/18 18: MCHC 33.6 g/dl (32-36) 01/29/18 18: RDW 13.6 % (11.5-14.0) 01/29/18 18: Plt Count 178 K/mm3 (150-450) 01/29/18 18: MPV 9.7 fl (8-11.3) 01/29/18 18: Immature Gran % (Auto) 0.60 % (0.001-0.429) H 01/29/18 18: Immature Gran # (Auto) 0.05 K/mm3 (0.000-0.0310) H 01/29/18 18: Neutrophils % 66.7 % (42-75.0) 01/29/18 18: Lymphocytes % 20.4 % (20-51) 01/29/18 18: Monocytes % 9.8 % (0.0-9) H 01/29/18 18: Eosinophils % 2.2 % (0.0-3.0) 01/29/18: Basophils % 0.3 % (0.0-1.0) 01/29/18 18: Nucleated RBC % 0.0 k/mm3 (0-1) 01/29/18 18: Neutrophils # 6.0 K/mm3 (1.3-6.0) 01/29/18 18: Lymphocytes # 1.83 k/mm3 (1.5-3.5) 01/29/18 18: Monocytes # 0.9 k/mm3 (0.0-1.0) 01/29/18 18: Eosinophils # 0.2 k/mm3 (0.0-0.7) 01/29/18 18: Absolute Basophils 0.0 k/mm3 (0.0-0.1) 01/29/18 18:25 PT 10.0 Seconds (9.0-11.0) 01/29/18 18:25 INR (Anticoag Therapy) 1.00 INR (0.90-1.10) 01/29/18 18:25 Sodium 131 mmol/L (132-142) L 01/29/18 18:25 Plasma Sodium 131 mmol/L (130-142) 01/29/18 18:25 Potassium 4.6 mmol/L (3.4-4.6) D 01/29/18 18:25 Chloride 97 mmol/L (97-106) 01/29/18 18:25 Carbon Dioxide 33.2 mmol/L (24-32.6) H 01/29/18 18:25 Anion Gap 5.4 mmol/L (6.8-13.8) L 01/29/18 18:25 BUN 14 mg/dL (6-23) 01/29/18 18:25 Creatinine 1.02 mg/dL (0.4-1.4) 01/29/18 18:25 Est GFR (Non-Af Amer) 81 mL/min (60-130) D 01/29/18 18:25 BUN/Creatinine Ratio 13.7 (9.0-21.6) 01/29/18 18:25 Random Glucose 98 mg/dL (70-110) 01/29/18 18:25 Calcium 8.7 mg/dL (7.9-10.9) 01/29/18 18:25 Calcium Adj for Albumin 8.5 mg/dL (8.4-10.2) 01/29/18 18:25 Magnesium 1.9 mg/dL (1.2-2.8) 01/29/18 18:25 Total Bilirubin 0.3 mg/dL (0.0-1.1) 01/29/18 18:25 AST 35 U/L (0-48) 01/29/18 18:25 ALT 35 U/L (19-67) 01/29/18 18:25 Alkaline Phosphatase 78 U/L (50-170) 01/29/18 18:25 Ammonia Less than 17.0 mcmol/L (11-35) 01/29/18 18:25 Total Protein 8.1 gm/dL (6.2-8.2) 01/29/18 18:25 Albumin 3.8 gm/dl (3.4-5.0) 01/29/18 18:25 Urine Opiates Screen Positive (NEGATIVE) H 01/29/18 19:35 Barbiturate Screen Negative (NEGATIVE) 01/29/18 19:35 Ur Phencyclidine Scrn Negative (NEGATIVE) 01/29/18 19:35 Urine Amphetamine Negative (NEGATIVE) 01/29/18 19:35 U Benzodiazepines Scrn Positive (NEGATIVE) H 01/29/18 19:35 Urine Cocaine Screen Negative (NEGATIVE) 01/29/18 19:35 Urine Marijuana (THC) Negative (NEGATIVE) 01/29/18 19:35 Ethyl Alcohol Less than 3.0 mg/dL (0.0-10.0) 01/29/18 20:35 Assessment/Plan - Narrative Narrative: Patient admitted for possible concussion after having a mechanical fall. At the time of my exam this AM, he is completely back to his baseline and denies any issues or concerns. No seizure activity noted during admission. Patient will be discharged home today. - Assessment/Plan (1) Concussion Problem: Acute Qualifiers: Encounter type: initial encounter Loss of consciousness presence/duration: without LOC Qualified Code(s): S06.0X0A - Concussion without loss of consciousness, initial encounter (2) Fall Problem: Acute Qualifiers: Encounter type: initial encounter Qualified Code(s): W19.XXXA - Unspecified fall, initial encounter (3) Alcohol use disorder Problem: Chronic (4) Seizure disorder Problem: Chronic
--- NOTE | 2018-01-30 10:30 | DS ---
(1) Fall Problem: Acute Qualifiers: Encounter type: initial encounter Qualified Code(s): W19.XXXA - Unspecified fall, initial encounter (2) Post concussion syndrome Problem: Acute (3) Altered mental status Problem: Resolved Qualifiers: Altered mental status type: somnolence Qualified Code(s): R40.0 - Somnolence (4) Seizure disorder Problem: Chronic Description of Stay: ADMISSION DATE: 01/29/2018 DISCHARGE DATE: 01/30/2018 ADMISSION HPI: The patient was at [facility] last night (01/29/2018) and he accidentally tripped over a bread crate that was on the ground causing him to fall and hit his head. He denies any LOC. He denies any headache this AM. He denies any N/V, ringing in his ears or changes in vision. He states he feels completely fine and is at his baseline. Of note, the patient has a history of alcohol use disorder and seizures. HOSPITAL COURSE: The patient was admitted to outpatient observation for a possible concussion after having a mechanical fall. At the time of my exam the AM of discharge, he was completely back to his baseline and denied any issues or concerns. There was no seizure activity noted during admission. Overall, the patients admission was uneventful and he was discharged home in stable condition. FOLLOW-UP APPOINTMENTS: -Follow-up with PCP, Dr. Rivas, within 1-2 weeks NEW OR CHANGED MEDICATIONS: -None DISCONTINUED MEDICATIONS: -None RADIOLOGY REPORTS: Right knee x-ray on 01/29/2018: FINDINGS: Osteopenia. No acute fracture. Small sclerotic lesions within the distal femoral diaphysis and proximal tibial diaphysis may relate to low-grade chondroid lesions or small bone infarcts. There is mild tricompartmental osteoarthrosis. There is no joint effusion. There is calcific atherosclerotic vascular disease. IMPRESSION: 1. Osteopenia. No acute fracture. 2. Probable small low-grade chondroid lesions or bone infarcts within the distal femoral diaphysis and proximal tibial diaphysis. 3. Mild tricompartmental osteoarthrosis. Head CT without contrast on 01/29/2018: Findings: The brain parenchyma is normal in attenuation. No intra- or extra-axial mass or fluid collection. No acute hemorrhage. The ventricles are normal in size, shape, and morphology. Encephalomalacia in the right frontal lobe. The garcia-white matte r junction is otherwise normal. The basilar cisterns are patent. The visualized paranasal sinuses are normal. The visualized portions of the orbits and globes are normal. The mastoid air cells are clear. No aggressive osseous lesion or fracture. Impression: No acute intracranial process. Encephalomalacia in the right frontal lobe. Right lower extremity CT without contrast on 01/29/2018: There is slight motion artifact affecting the distal femur at the level of the femoral condyles. There is no definite signs of a linear fracture lucency or cortical discontinuity. Marginal osteophytes and all 3 compartments of the right knee consistent with osteoarthritis. There is a trace amount of fluid within the suprapatella bursa. Vascular calcifications noted suggestive of atherosclerosis. Joint spaces are in gross normal alignment without evidence for dislocation or significant subluxation suggested on these images. IMPRESSION: 1. No CT signs of acute fracture. Slight limitation due to motion artifact. 2. Additional comments are as above. Procedures Performed: none Results and Findings: Lab Pending Results 01/29/18 18:25: WBC 9.0, RBC 4.95, Hgb 15.3, Hct 45.5, MCV 91.9, MCH 30.9, MCHC 33.6, RDW 13.6, Plt Count 178, MPV 9.7, Immature Gran % (Auto) 0.60 H, Immature Gran # (Auto) 0.05 H, Neutrophils % 66.7, Lymphocytes % 20.4, Monocytes % 9.8 H, Eosinophils % 2.2, Basophils % 0.3, Nucleated RBC % 0.0, Neutrophils # 6.0, Lymphocytes # 1.83, Monocytes # 0.9, Eosinophils # 0.2, Absolute Basophils 0.0 01/29/18 18:25: Sodium 131 L, Plasma Sodium 131, Potassium 4.6 D, Chloride 97, Carbon Dioxide 33.2 H, Anion Gap 5.4 L, BUN 14, Creatinine 1.02, Est GFR (Non-Af Amer) 81 D, BUN/Creatinine Ratio 13.7, Random Glucose 98, Calcium 8.7, Calcium Adj for Albumin 8.5, Magnesium 1.9, Total Bilirubin 0.3, AST 35, ALT 35, Alkaline Phosphatase 78, Total Protein 8.1, Albumin 3.8, Ethyl Alcohol 4.0 01/29/18 18:25: Ammonia Less than 17.0 01/29/18 18:25: PT 10.0, INR (Anticoag Therapy) 1.00 01/29/18 19:35: Urine Opiates Screen Positive H, Barbiturate Screen Negative, Ur Phencyclidine Scrn Negative, Urine Amphetamine Negative, U Benzodiazepines Scrn Positive H, Urine Cocaine Screen Negative, Urine Marijuana (THC) Negative 01/29/18 20:35: Ethyl Alcohol Less than 3.0 Discharge Location: Home Disposition: Home self-care Condition: Stable Discharge Activity: Activity as tolerated Discharge Diet: Low fat/chol, Resume usual diet Referrals: Herber Rivas DO [Primary Care Provider] - Problem Oriented Discharge Instructions to Patient/Family: Fall Prevention in the Home, [id number], Concussion, Adult, [id number] Additional Patient Instructions (free text): -Follow-up with PCP, Dr. Rivas, within 1-2 weeks. Follow up with Dr. Rivas 02/06 at 1:00pm. Complete Home Medications List: Complete Home Medication List: Acetaminophen [Tylenol] 500 mg PO Q6H PRN #90 tab 06/25/16 Albuterol Sulfate [Albuterol Sulfate 2.5 MG/3 ML] 2.5 mg INHALATION Q6H PRN #3 vial.neb 06/25/16 Thiamine HCl [Vitamin B-1] 100 mg PO DAILY #30 tab 06/25/16 paroxetine 30 mg tablet 30 mg PO DAILY #30 tab 01/23/18 albuterol sulfate 90 mcg/actuation breath activated powder inhaler 180 mcg INHALATION Q6H #1 ea 01/26/18 aspirin 81 mg tablet,delayed release 81 mg PO DAILY #30 tablet. 01/26/18 budesonide-formoterol HFA 160 mcg-4.5 mcg/actuation aerosol inhaler 2 puff INHALATION BID #10.2 g 01/26/18 bupropion HCl XL 150 mg 24 hr tablet, extended release 150 mg PO QAM #30 tab 01/26/18 clopidogrel 75 mg tablet 75 mg PO DAILY #30 tab 01/26/18 ipratropium 20 mcg-albuterol 100 mcg/actuation mist for inhalation 1 puff INHALATION QID #4 g 01/26/18 levetiracetam 500 mg tablet 500 mg PO BID #90 tab 01/26/18 ranitidine 150 mg tablet 150 mg PO BID #60 tab 01/26/18 albuterol sulfate HFA 90 mcg/actuation aerosol inhaler 2 puff IH Q6H PRN #18 g 01/27/18 Atorvastatin Calcium 80 mg PO HS 01/29/18 Metoprolol Tartrate [Lopressor] 25 mg PO BID 01/29/18 Pregabalin [Lyrica] 150 mg PO TID 01/29/18 rOPINIRole HCL [Requip] 0.5 mg PO DAILY 01/29/18 tamsulosin 0.4 mg capsule 0.4 mg PO DAILY #30 cap 02/09/18
[2018-01-30 11:54] VITALS: BP 141/56
== END 2018-01-30 12:25 | disposition home or self-care (01) ==
LOC: ER 17:59 → MS 17:59
PROVIDERS: ADMIT Internal Medicine; ATTEND Family Medicine
DX: S06.0X0A Concussion without loss of consciousness, initial encounter; F07.81 Postconcussional syndrome; Z86.73 Personal history of transient ischemic attack (TIA), and cerebral infarction without residual deficits; G40.909 Epilepsy, unspecified, not intractable, without status epilepticus; W01.0XXA Fall on same level from slipping, tripping and stumbling without subsequent striking against object, initial encounter; Y92.512 Supermarket, store or market as the place of occurrence of the external cause; I10 Essential (primary) hypertension; F10.129 Alcohol abuse with intoxication, unspecified
CPT/HCPCS: 36415; 70450; 73562; 73700; 80053; 80177; 80307; 80320; 82140; 83735; 85025; 85610; 96365; 96367; 99285; G0378; G0479; G0481